=== PATIENT | female | born 1950 | race Caucasian/White ===

== ENCOUNTER → 2020-05-02 | Outpatient (CLI) | payer MEDICARE, OTHER, SELFPAY ==
[2014-06-09 10:49] VITALS: BMI 33.3
== END | disposition home or self-care (01) ==
LOC: PSN 13:49
PROVIDERS: PCP Family Medicine; Referring Provider Family Medicine; Visit Provider Family Medicine
DX: I48.91 Unspecified atrial fibrillation (principal)
CPT/HCPCS: 93225; 93226

== ENCOUNTER → 2020-05-30 | Outpatient (CLI) | payer MEDICARE, OTHER, SELFPAY ==
[2020-05-15 09:23] VITALS: BMI 36.1
--- NOTE | 2020-05-30 06:08 | ECHOD_ITS ---
Reason For Study: Afib, Aflutter Procedure This was a 2D Doppler, Color Flow transthoracic echocardiogram. Exam performed in department. Left Ventricle Normal LV size. Left ventricular systolic function is normal. The estimated ejection fraction is 65 %. Stage 1 diastolic dysfunction. No regional wall motion abnormalities noted. Right Ventricle Normal RV size. Normal systolic function. Atria Normal left atrium. Normal right atrium. Mitral Valve Normal mitral valve. Tricuspid Valve Normal tricuspid valve. Mild (1+) tricuspid valve insufficiency. Pulmonary artery systolic pressure is 36 mmHg. Aortic Valve Trisinus/trileaflet aortic valve. Pulmonic Valve Normal pulmonic valve. Great Vessels Normal aortic root. The pulmonary artery is normal size. Normal inferior vena cava. Pericardium/Pleural No pericardial effusion. MMode/2D Measurements & Calculations LVIDd: 4.7 cm IVSd: 0.95 cm Ao root diam: 3.3 cm LVIDs: 2.6 cm LVPWd: 0.94 cm RVDd: 2.1 cm FS: 44.1 % LAV(MOD-bp): 29.2 ml LVAd ap4: 18.8 cm2 SV(MOD-sp4): 27.2 ml LAV(MOD-bp) Indexed: 14.1 ml/m2 EDV(MOD-sp4): 41.3 ml LAV(MOD-sp2): 40.8 ml EDV(sp4-el): 42.4 ml LAV(MOD-sp4): 16.7 ml LVAs ap4: 10.0 cm2 ESV(MOD-sp4): 14.1 ml ESV(sp4-el): 14.6 ml EF(MOD-sp4): 65.9 % EF(sp4-el): 65.7 % SV(sp4-el): 27.9 ml LA A4 area: 8.8 cm2 LA dimension(2D): 3.2 cm RA A4 area: 7.7 cm2 Doppler Measurements & Calculations MV E max sloan: 93.9 cm/sec Lat Peak E' Sloan: 7.9 cm/sec Med Peak E' Sloan: 6.6 cm/sec MV A max sloan: 106.7 cm/sec E/E' lat: 11.8 E/E' med: 14.1 MV E/A: 0.88 Ao V2 max: 151.4 cm/sec LV V1 max: 137.7 cm/sec PA V2 max: 107.2 cm/sec Ao max P.2 mmHg LV V1 max P.6 mmHg Ao V2 mean: 101.4 cm/sec Ao mean P.5 mmHg Ao V2 VTI: 30.6 cm TR max sloan: 284.3 cm/sec TR max P.3 mmHg Interpretation Summary Normal LV size. Left ventricular systolic function is normal. The estimated ejection fraction is 65 %. Stage 1 diastolic dysfunction. Mild (1+) tricuspid valve insufficiency. Ordering Physician: Ameya Crawford Referring Physician: Yovanny Self Performed By: Neyda Herr, NANY, RVT
--- NOTE | 2020-05-30 09:04 | STRESSREP ---
Stress Test Report Pharmacologic myocardial perfusion stress test. 70-year-old lady with a history of coronary artery disease. Stress protocol: Resting EKG demonstrates normal sinus rhythm with a rate of 71 bpm normal intervals are noted resting blood pressure is 130/74 mmHg. 0.4 mg of regadenoson was infused per usual protocol followed by rapid intravenous saline flush injection continuous EKG monitoring was performed. The maximum heart rate attained was 88 bpm which was 58% of maximum predicted heart rate the maximum workload was 1 metabolic equivalent. At rest there were no ST or T wave changes noted to suggest abnormal flow reserve at peak infusion nonspecific ST-T wave changes were noted to suggest abnormal flow reserve. Myocardial perfusion protocol. 14.3 mCi of technetium 99m sestamibi was injected at rest. 0.4 mg of regadenoson was infused per usual protocol. At peak infusion 44.1 mCi of technetium 99m sestamibi was injected stress images were obtained stress and rest images were reconstructed and compared in the short axis vertical and horizontal long axis. Gated images were also obtained. Perfusion SPECT analysis: Review of the stress images demonstrate normal uptake of tracer noted in all areas of the myocardium the resting images demonstrate normal uptake of tracer noted in all areas of the myocardium. No reversibility is noted to suggest ischemia no previous infarct is noted. Gated SPECT analysis: Gated ejection fraction is 89%. Conclusion: Normal pharmacologic myocardial perfusion stress test. Preserved ejection fraction.
== END | disposition home or self-care (01) ==
LOC: CVS 06:08
PROVIDERS: PCP Family Medicine; Referring Provider Internal Medicine Cardiovascular Disease; Visit Provider Internal Medicine Cardiovascular Disease
DX: I25.10 Atherosclerotic heart disease of native coronary artery without angina pectoris (principal); R00.2 Palpitations; R07.9 Chest pain, unspecified; I48.91 Unspecified atrial fibrillation; I48.92 Unspecified atrial flutter
CPT/HCPCS: 78452; 93017; 93306; A9500; A4216; J2785

== ENCOUNTER → 2020-09-27 12:27 | Outpatient (CLI) | payer MEDICARE, OTHER, SELFPAY ==
[2020-09-23 15:19] VITALS: BMI 36.6
--- NOTE | 2020-09-27 12:31 | RAD_ITS ---
HISTORY: HYPERTENSION, V-TACHHX OF BILATERAL MASTECTOMY EXAM: XR Chest 2 Views: COMPARISON: None FINDINGS: # of images incl. paperwork: 2 Anterior cervical fixation hardware. Multiple surgical clips about the chest and abdomen. The chest may be related to breast surgery or other surgical changes. Cholecystectomy clips. Lungs are clear. Heart is not enlarged. No acute osseous pathology perceived. Pulmonary vascularity is distinct. No effusions. RAD/Chest PA and Lateral IMPRESSION: No acute cardiopulmonary disease perceived. at 0056 Reported and signed by: Dung Lam MD Electronically Signed: Dung Lam MD at 0:54 EST Tel , Service support ,
[2020-09-27 15:48] LABS: Absolute Lymphocyte Count 2.22 X10^3/uL (0.83-4.51); Absolute Neutrophil Count 4.4 X10^3/uL (2.0-7.7); Basophil# 0.04 X10^3/uL; Basophil% 0.5 % (0-1); Eosinophil# 0.25 X10^3/uL; Eosinophils% 3.4 % (0-5); Hematocrit 36.8 % (37-47); Lymphocyte # 2.22 X10^3/ul (4.0); Lymphocyte % 30.2 % (19-41); Mean Corp Hgb Conc 32.6 g/dL (32-36); Mean Corpuscular Hgb 29.6 pg (27.0-32.0); Mean Corpuscular Volume 90.6 fL (81-99); Mean Platelet Vol. 10.6 fl (6.2-12.0); Monocyte# 0.46 X10^3/uL; Monocyte% 6.3 % (0-10); NRBC Flagged by Analyzer 0 % (0-5); Neutrophil # 4.36 X10^3/uL (2.7-7.7); Neutrophil % 59.2 % (47-70); Platelet Count 302 K/mm3 (150-450); RBC Distribution Width CV 13.1 % (11.6-14.6); RBC Distribution Width SD 43.8 fl (35.1-43.9); Red Blood Count 4.06 M/mm3 (4.2-5.4); White Blood Count 7.4 K/mm3 (4.4-11.0)
[2020-09-27 15:49] LABS: International Normalized Ratio 0.9; Prothrombin Time (Protime)PT. 11.7 SECONDS (11.7-14.9)
[2020-09-27 16:07] LABS: Anion Gap 4 (5-15); BUN 14 mg/dL (7-18); BUN/Creat Ratio 13.9 RATIO (10-20); Calcium,Total 8.9 mg/dL (8.5-10.1); Chloride 106 mmol/L (98-107); Creatinine, Serum 1.01 mg/dL (0.55-1.02); EST Glomerular Filtration Rate 58 mL/min (>60); Est Glom Filt Rate - Afr Amer 70 mL/min (>60); Glucose 130 mg/dL (74-106); Magnesium 2.1 mg/dL (1.6-2.6); Potassium 3.8 mmol/L (3.5-5.1); Sodium Level 141 mmol/L (136-145); Thyroid Stim Hormone (TSH) 0.49 uIU/mL (0.358-3.74)
== END ==
PROVIDERS: PCP Family Medicine; Referring Provider Physician Assistant Medical; Visit Provider Physician Assistant Medical
DX: I47.2 Ventricular tachycardia (principal); I10 Essential (primary) hypertension; E78.5 Hyperlipidemia, unspecified; R00.2 Palpitations
CPT/HCPCS: 36415; 71046; 80048; 83735; 84443; 85025; 85610

== ENCOUNTER 2020-10-07 07:04 | Day surgery (SDC) | payer MEDICARE, OTHER, SELFPAY ==
[2020-09-23 15:19] VITALS: BMI 36.6
[2020-10-04 08:51] VITALS: BMI 36.6
--- NOTE | 2020-10-07 06:00 | HP_ITS ---
HPI HPI History of Present Illness Surgical H&P: Yes Details: This is a 70-year-old female that presents here today to further discuss her 30-day event monitor. She recently established with us earlier this year for hypertension, hyperlipidemia and postoperative atrial fibrillation. She did undergo a stress test which was negative for ischemia. Echocardiogram demonstrated a normal ejection fraction. Patient called our office last month with concerns over increase in palpitations. She did undergo a 30-day event monitor. 30-day event monitor did demonstrate 2 short episodes of nonsustained ventricular tachycardia. Pt still notes palpitations. She was having difficultly with the 30 day monitor with her skin. She does not have any chest pain. She does however have chest tightness- this can occur a few times a day and others not at all. She does feel SOB when she feels her heart is beating harder. When these occur she needs to stop and rest. She does not have any worsening SOB. She does get SOB walking up inclines. She does not have any lightheadedness/dizziness. She does not have any edema. Intake Vital Signs 09/23/20 Height 5 ft 5 in 09/23/20 Weight: 220 lb 09/23/20 BP 104/54 L 09/23/20 Blood Pressure Location Lt brachial 09/23/20 Position Sitting 09/23/20 Respiration 16 09/23/20 Pulse 72 09/23/20 Pulse Source Auscultation Intake Visit Reasons: VT (okay per MMM) Adult And Pediatric Neurologist Required: No Accompanied by: None Is patient in pain?: No Allergies Penicillins Allergy (Verified 09/23/20 15:24) Rash pregabalin [From Lyrica] Allergy (Verified 09/23/20 15:24) swelling morphine Adverse Reaction (Verified 09/23/20 15:24) Vomiting NSAIDS (Non-Steroidal Anti-Inflamma Adverse Reaction (Verified 09/23/20 15:24) abdominal pain/nausea/GERD Medications albuterol sulfate 90 mcg/actuation aerosol inhaler 2 puff INHALATION Q6H PRN 05/14/20 [History Confirmed 09/23/20] citalopram 40 mg tablet 60 mg PO DAILY tab 05/14/20 [History Confirmed 09/23/20] hydrochlorothiazide 12.5 mg tablet 12.5 mg PO DAILY 05/14/20 [History Confirmed 09/23/20] lisinopril 20 mg tablet 20 mg PO DAILY tab 05/14/20 [History Confirmed 09/23/20] lorazepam 1 mg tablet 1 mg PO QHS tab 05/14/20 [History Confirmed 09/23/20] trazodone 100 mg tablet 100 mg PO DAILY tab 05/14/20 [History Confirmed 09/23/20] metoprolol succinate 50 mg tablet,extended release 24 hr 50 mg PO DAILY #90 tab 05/15/20 [Rx Confirmed 09/23/20] aspirin 81 mg tablet,delayed release 81 mg PO DAILY 09/23/20 [History Confirmed 09/23/20] clopidogrel 75 mg tablet 75 mg PO DAILY #30 tab 09/23/20 [Rx Confirmed 09/23/20] hydrocodone 5 mg-acetaminophen 325 mg tablet 1 tab PO TID PRN tab 09/23/20 [History Confirmed 09/23/20] methocarbamol 500 mg tablet 500 mg PO Q8H PRN tab 09/23/20 [History Confirmed 09/23/20] omeprazole 20 mg capsule,delayed release 40 mg PO DAILY cap 09/23/20 [History Confirmed 09/23/20] rosuvastatin 10 mg tablet 10 mg PO QHS tab 09/23/20 [History Confirmed 09/23/20] Ejection fraction %: 65 to 70 PFSH Medical History Postoperative atrial fibrillation (Acute 04/29/20) Essential (primary) hypertension (Chronic) Hyperlipidemia (Chronic) Anxiety and depression (Chronic) Asthma (Chronic) Cervicalgia (Chronic) Diverticulosis (Chronic) GERD (gastroesophageal reflux disease) (Chronic) Glaucoma (Chronic) Hiatal hernia (Chronic) OAB (overactive bladder) (Chronic) Obesity (BMI 30-39.9) (Chronic) Surgical History Cervical vertebral fusion (Resolved) Dupuytren's contracture of right hand (Resolved 04/29/20) History of bilateral mastectomy (Resolved) History of hand surgery (Resolved) History of hip surgery (Resolved) History of open reduction and internal fixation (ORIF) procedure (Resolved) History of repair of rotator cuff (Resolved 02/2020) History of surgical procedure on eye proper using laser (Resolved) History of total knee arthroplasty (Resolved) Family History Father Heart disease Mother Heart disease Atrial fib Social History (Updated 09/23/20 @ 16:40 by Peyton Garrison PA, PA) Smoking Status: Never smoker ROS Const Const: Positive for fatigue; negative for weakness, headache(s), frequent falls, difficulty sleeping or excessive sweating Eyes Eyes: Negative for loss of peripheral vision, transient loss of vision, blurry vision, double vision or tunnel vision ENT ENT: Positive for dizziness (Occasionally); negative for headache(s), Nosebleed/epistaxis or balance problems Cardio Chest Pain: Yes Frequency: more than once a day Character: tightness Onset: other (randomly) Location: mid sternal Duration: minutes (less than a minute) Palpitations: Yes feels like its: fast, other (fluttering) Edema: None Muscle aches with walking: None Resp Respiratory: Positive for SOB with activity (with incline); negative for SOB at rest, SOB orthopnea\SOB lying down, Cough or paroxysmal nocturnal dyspnea GI GI: Negative nausea, vomiting, heartburn or black,tarry stools : Negative for hematuria Musc Musc: Negative for muscle aches/ myalgia, muscle weakness, joint pain or balance problems Skin Skin: Negative non-healing lesions, rash or unusual bruising Neuro Neuro: Positive for dizziness (Occasionally); negative for lightheadedness, near syncope, syncope, frequent falls, headache(s), weakness, blurry vision, double vision or lack of coordination Antonino Hematologic/Lymphatic: Negative for easy bleeding or easy bruising Endo Endo: Positive for fatigue; negative for excessive sweating or increased thirst/drinking Psych Psych: Negative for anxiety or depression Allergy Allergy/Immunology: Negative for hives, Negative for rash Cardiology Exam Const Appearance: cooperative, no acute distress and well developed Orientation: alert, awake and oriented x3 Head Head: normocephalic and atraumatic Mouth: moist mucous membranes Eyes General: appearance normal, both eyes and all related structures Conjunctivae: conjunctivae normal Pupils: PERRL EOM: EOM intact bilaterally Neck Neck: normal visual inspection, no lymphadenopathy and no JVD Carotids: Negative bruit Neck Mass: Negative Neck mass Chest Chest inspection: normal inspection of the chest and symmetric chest movement Auscultation: Bilateral: Clear to Auscultation Cardio Palpation: normal PMI Rate: regular rate Rhythm: regular rhythm Heart sounds: S1 normal and S2 normal; negative rub, gallop or murmur GI GI: normal to inspection, soft, no hepatosplenomegaly and bowel sounds present; negative tender Neuro General: alert, awake, oriented x3, CN's II-XI intact bilaterally and moves all extremities Extremities Pulses: Normal: Right Posterior Tibial Pulse, Left Posterior Tibial Pulse, Right Radial Pulse, Left Radial Pulse Lower Extremity Edema: None: Bilateral Psych Psychological: normal affect Assessment & Plan 1. NSVT (nonsustained ventricular tachycardia) I47.2 Plan Pt was not symptomatic with NSVT that was noted. With her recent normal stress test and newly noted NSVT would like to pursue a heart cath. Pt is agreeable with this. Will also obtain labs. Orders Orders: 12 Lead EKG performed by [facility] Today Basic Metabolic Profile (BMP) Today Prothrombin Time w/INR Today CBC W/Diff, Automated Today Chest PA and Lateral Today Magnesium Today Thyroid Stim Hormone (TSH) Today 2. Essential hypertension I10 Plan Blood pressure is well controlled on current medications, we do not recommend any changes at this time. Orders Orders: 12 Lead EKG performed by [facility] Today Basic Metabolic Profile (BMP) Today Prothrombin Time w/INR Today CBC W/Diff, Automated Today Chest PA and Lateral Today Magnesium Today Thyroid Stim Hormone (TSH) Today 3. Hyperlipidemia E78.5 Plan Pt will continue with moderate intensity statin Orders Orders: 12 Lead EKG performed by [facility] Today Basic Metabolic Profile (BMP) Today Prothrombin Time w/INR Today CBC W/Diff, Automated Today Chest PA and Lateral Today Magnesium Today Thyroid Stim Hormone (TSH) Today 4. Postoperative atrial fibrillation I97.89; I48.91 episode of afib during hand surgery Plan Pt has not had any recurrance, for now will continue with Metoprolol. Plan Detail Other Orders Orders: Thyroid Stim Hormone (TSH) Today R00.2 Other Medications New: clopidogrel (Plavix) 75 mg PO DAILY 30 tabs 3RF aspirin (Adult Aspirin Regimen) 81 mg PO DAILY Follow Up 09/23/20 (keep as is) Coding Level of Care Code Off vis,est,level 4 Diagnoses NSVT (nonsustained ventricular tachycardia) I47.2 Essential hypertension I10 Hyperlipidemia E78.5 Postoperative atrial fibrillation I97.89; I48.91 Coding Level of Care Code Off vis,est,level 4 Diagnoses NSVT (nonsustained ventricular tachycardia) I47.2 Essential hypertension I10 Hyperlipidemia E78.5 Postoperative atrial fibrillation I97.89; I48.91 Supplemental Info Supplemental Information Echocardiogram 05/2020: Normal LV size. Left ventricular systolic function is normal. The estimated ejection fraction is 65 %. Stage 1 diastolic dysfunction. Mild (1+) tricuspid valve insufficiency. Stress test 05/2020: Normal pharmacologic myocardial perfusion stress test. Preserved ejection fraction Diagnostics Electrocardiogram 09/23/20 Echocardiogram 05/30/20 Stress Test Nuclear Medicine 05/30/20 Stress Test 05/30/20 COVID (Procedure Consent) Procedure Criteria Procedure Criteria: Yes Elective The surgeon/proceduralist and patient have discussed in detail the risk of exposure to and/or potential harm posed by the COVID-19 virus with having a surgery/procedure at this time versus the risk of? delaying the surgery/procedure. It is not possible to know either the risk of delaying the surgery or procedure or chance of getting an infection with perfect accuracy, but a joint decision was made between the patient and the surgeon/proceduralist ?to proceed at this time with the scheduled surgery/procedure as indicated on the consent form.
--- NOTE | 2020-10-07 08:49 | CL.D_ITS ---
Patient Name: LINDSAY JACKSON Study Date: 10/07/2020 Performing: Ameya Crawford MD Ht: 64.96 inches 165 cm : 1950 Wt: 220.46 lbs 100 kg Age: 70 Gender: female BSA: 2.06 PROCEDURE(S) PERFORMED IX78-WRL/COR/LV CLINICAL PROFILE AND INDICATIONS Indications: Cardiac Arrythmia Heart Failure: None Stress/Imaging Stress/Image Study Performed: No CAD Presentations: No Sxs, no angina. CONCLUSIONS Normal coronary arteries Normal LV size, wall motion,and systolic function RECOMMENDATIONS Medical therapy DESCRIPTION OF PROCEDURE The patient arrived to the procedure lab. The risks and benefits of the procedure as well as a full d escription of our services here and current unavailability of surgical backup were fully explained to the patient and/or their significant other prior to the catheterization. The Timeout was completed, verifying the correct patient and procedure. The patient's procedural site was prepped and draped in the usual fashion. Local anesthetic was given subcutaneously to right radial region with Lidocaine 2% . Using a modified Seldinger technique, arterial access was obtained via the right radial artery, a 6 Fr sheath was inserted. Right Coronary Artery selective angiography was performed in multiple views using a 5 Fr. 4.0 Sumter catheter. Left Coronary Artery selective angiography was performed in multipl e views using a 5 Fr. 4.0 [place] catheter. Left Ventriculography was performed in [place] projection using a 5 Fr. Pigtail catheter. LV to AO pullback pressures were then recorded.The arterial sheath was pulled and a TR Band was applied for hemostasis CORONARY ANGIOGRAPHY DOMINANCE: Right Dominant LEFT HEART ASSESSMENT Left Ventricular Ejection Fraction: by LV Gram 60 % Normal LV wall motion Normal Left Ventricular systolic function Normal Left Ventricular systolic function LEFT MAIN: Angiographically normal LEFT ANTERIOR DESCENDING ARTERY: Angiographically normal CIRCUMFLEX ARTERY: Angiographically normal RIGHT CORONARY ARTERY: Angiographically normal COMPLICATIONS No Complications PROCEDURE MEDICATIONS Fentanyl 50 mcg IV Versed 1 mg IV Versed 1 mg IV Oxygen: 2 L/min via nasal cannula Heparin diluted in 23cc Heparinized saline. Patient given 10cc IA of this solution. 10/07/2020 08:09: 06 Verapamil 2.5mg, Ntg 100mcgs, 2000 units of Heparin diluted in 23cc Heparinized saline. Patient give n 10cc IA of this solution. 10/07/2020 08:09:06 SUMMARY OF HEMODYNAMIC DATA Time AIR REST ECG 07:31:32 AO 118/62 (87) SA 08:13:17 LV 128/6, 19 08:26:06 LV 129/6, 18 08:26:12 LV 122/8, 19 08:27:25 LV 125/10, 20 08:27:31 LVp 129/10, 24 08:27:35 AOp 133/62 (92) 08:27:40 Signed By Ameay Crawford MD On 10/07/2020 08:48:42 Ameya Crawford MD
== END 2020-10-07 10:25 | disposition home or self-care (01) ==
LOC: CLSP 07:05
PROVIDERS: PCP Family Medicine; Referring Provider Internal Medicine Cardiovascular Disease; Visit Provider Internal Medicine Cardiovascular Disease
DX: I47.2 Ventricular tachycardia (principal); I10 Essential (primary) hypertension; E78.5 Hyperlipidemia, unspecified; I48.91 Unspecified atrial fibrillation; I97.89 Other postprocedural complications and disorders of the circulatory system, not elsewhere classified; J45.909 Unspecified asthma, uncomplicated; K21.9 Gastro-esophageal reflux disease without esophagitis; E66.9 Obesity, unspecified; Z79.899 Other long term (current) drug therapy; Z79.51 Long term (current) use of inhaled steroids
CPT/HCPCS: 93458; 99152; 99153; J7040; Q9967; C1769; C1894

== ENCOUNTER → 2021-01-08 12:48 | Outpatient (CLI) | payer MEDICARE, SELFPAY ==
[2021-01-02 13:04] VITALS: BMI 36.4
--- NOTE | 2021-01-08 12:50 | US_ITS ---
INDICATION: NECK SWELLING EXAMINATION: US Thyroid (eg thyroid, parathyroid, parotid) TECHNIQUE: Peguero scale and color doppler imaging was performed of the thyroid gland. COMPARISON: None. FINDINGS: RIGHT THYROID LOBE: 5.3 x 1.8 x 2.5 cm. Homogeneous echotexture with normal vascularity. [Multiple subcentimeter nodules are seen, largest of which measures 5 mm and is well-circumscribed, hypoechoic, wider than tall and solid. LEFT THYROID LOBE: 5.7 x 2.2 x 2.3 cm. Homogeneous echotexture with normal vascularity. [There is a 7 mm hypoechoic well-circumscribed, wider than tall solid nodule in the midpole. In the lower pole, there is a 3 x 2.4 x 2.4 cm solid and cystic mass with indistinct margins, isoechoic, wider than tall. ISTHMUS: 0.3 cm. No thyroid nodules are present. US/Thyroid IMPRESSION: Multinodular goiter: -A 3 cm solid and cystic nodule in the left lower pole is TI-RADS 3. Recommend FNA. -The other two nodules measured are also TI-RADS 3 but are small and therefore no FNA recommended. Electronically Signed: Baldev Patel MD at 0:09 EDT Tel , Service support ,
== END ==
PROVIDERS: PCP Family Medicine; Referring Provider Family Medicine; Visit Provider Family Medicine
DX: R22.1 Localized swelling, mass and lump, neck (principal)
CPT/HCPCS: 76536

== ENCOUNTER → 2021-01-22 | Outpatient (CLI) | payer MEDICARE, SELFPAY ==
--- NOTE | 2021-01-22 | ASPS_PTH ---
PATIENT: [facility]INDSAY JACKSON [id number] AGE/SX: 70/F ROOM: RE01/22/[address]: Dr. Mikael Collins MD : 1950 BED: DIS: 01/22/2021 SPEC #: [id number] RECD: 01/22/21 15:10 STATUS: MIGUEL ANGEL REQ #: [id number] ANDREA: 01/22/21 00:[address]: Mikael Collins DEPT: CYTOLOGY RECD BY: Humza Arellano ENTERED: 01/23/21 08:37 SP TYPE: ASPIRATION OTHR DR: Dr. Yovanny Self MD Tissues: Thyroid gland, NOS Procedures: Special Stain Group II Cytology Other HEADER OPERATION: Left thyroid fine needle aspiration PRE-OP DIAGNOSIS: Left thyroid nodule TISSUE SUBMITTED: Left thyroid slides x10 DIAGNOSIS CYTOLOGY Fine needle aspiration, left thyroid nodule (smears): Adequate for evaluation. Negative, consistent with benign colloid/follicular nodule. Chronic inflammation. AM:beryl 01/24/2021 CYTOLOGY STUDY Slides are reviewed. CYTOLOGY GROSS Received are 10 smears labeled with the patient's name and designated per the requisition as left thyroid. Submitted for staining. / beryl 01/23/2021 TC:3 CPT: 01006
[2021-01-22 12:57] VITALS: BMI 36.4
== END | disposition home or self-care (01) ==
LOC: LABSPEC 15:22
PROVIDERS: PCP Family Medicine; Visit Provider Surgery
DX: E04.1 Nontoxic single thyroid nodule (principal)
CPT/HCPCS: 88161; 88313

== ENCOUNTER → 2021-01-30 12:33 | Outpatient (CLI) | payer MEDICARE, SELFPAY ==
[2021-01-22 12:57] VITALS: BMI 36.4
--- NOTE | 2021-01-30 12:54 | ST.MBS ---
Modified Barium Swallow - Patient Information Study Date: 01/30/21 Study Time: 13:00 Direct Billable Minutes: 120 Total Minutes procedure & reportin Diagnosis: Dysphagia Referring Physician: Dr. Collins Reason for Referral: The patient was referred by Dr. Collins d/t reported difficulty swallowing over the past couple of months. Patient has noted that there is a slight catch when she tries to swallow, and she points more toward the base of her left neck. Patient underwent a thyroid ultrasound at [facility] on 01/08/2021 which suggested that in the lower pole on the left there was a 3 x 2.4 x 2.4 cm solid cystic mass with indistinct margins. An ultrasound-guided fine needle aspiration left thyroid nodule was completed on 01/22/2021 and then the patient was referred for an outpatient Modified Barium Swallow Study w/ instruction per the referring physician to identify where the thyroid could be impacting her swallowing and be a component to her concerns. Medical History: Roselyn Delgadillo is a 70 y/o female w/ a past medical history significant for Anxiety and depression, Asthma, Cervicalgia, Diverticulosis, Dysphagia, Essential (primary) hypertension, GERD (gastroesophageal reflux disease), Glaucoma, Hiatal hernia, Hyperlipidemia, OAB (overactive bladder), Obesity (BMI 30-39.9), Postoperative atrial fibrillation (04/29/20), and a surgical history of Cervical vertebral fusion (+20 years ago), Dupuytren's contracture of right hand (04/29/20), History of bilateral mastectomy, History of hand surgery, History of hip surgery, History of left heart catheterization (10/07/20), History of open reduction and internal fixation (ORIF) procedure, History of repair of rotator cuff (02/2020), History of surgical procedure on eye proper using laser, and History of total knee arthroplasty. Current Diet Ordered: regular textures/thin liquids Mental Status: WNL Respiratory Status: Oxygenating on Room Air - Penetration-Aspiration Scale Penetration-Aspiration Scale: OBJECTIVE ASSESSMENT OF SWALLOW FUNCTION (QUANTITATIVE ? PER TRIAL): PENETRATION / ASPIRATION SCALE (ROWAN): 1 = does not enter airway 2 = enters airway/above vocal folds/ejected 3 = enters airway/above vocal folds/not ejected 4 = enters airway/contacts vocal folds/ejected 5 = enters airway/contacts vocal folds/not ejected 6 = enters airway/below vocal folds/ejected 7 = enters airway/below vocal folds/not ejected despite effort 8 = enters airway/below vocal folds/no effort - Penetration-Aspiration Scale Score Thin Liquid via teaspoon Result: 1= does not enter airway Thin Liquid via teaspoon Trial 2 Result: 1= does not enter airway Thin Liquid via small single sip from cup Result: 1= does not enter airway Thin Liquid via sequential sips from cup Result: 1= does not enter airway Thin Liquid via single sip from straw Result: 1= does not enter airway Pudding Result: 1= does not enter airway Cookie Result: 1= does not enter airway Pudding - esophageal clearance screen Result: 1= does not enter airway - Oral Phase Labial Seal: No Labial Escape Tongue Control During Bolus Hold: Cohesive bolus between tongue to palatal seal Bolus Preparation/Mastication: Timely and efficient chewing and mashing Bolus Transport/Lingual Motion: Brisk tongue motion Oral Residue: Trace residue lining oral structures - Pharyngeal Phase Initiation of Pharyngeal Swallow: Bolus head at posterior laryngeal surgace of epiglottis Soft Palate Elevation: No bolus between soft palate and pharyngeal wall Laryngeal Elevation: Comp. Superior move thyroid cart w/comp. apprx arytenoid cart-epig pet Anterior Hyoid Excursion: Complete anterior movement Epiglottic Movement: Complete inversion Laryngeal Vestibule Closure at Height of Swallow: Complete; no air/contrast in laryngeal vestibule Pharyngeal Stripping Wave: Present - diminished Pharyngoesophageal Segment Opening: Parital distension and partial duration; parital obstruction of flow Tongue Base Retraction: Trace column of contrast between tongue base & post. pharyngeal wall Pharyngeal Residue: Trace residue within or on pharyngeal structures - Esophageal Phase Esophageal Clearance: Esophageal retention w/ retrograde flow below pharyngoesophageal seg. - Diagnosis/Impression Diagnosis: Functional Oropharyngeal Swallow; Suspected Esophageal Phase Dysphagia Impression: Swallow function is marked by: adequate oral to pharyngeal bolus transportation mild delay in swallow onset w/ large volume/sequential swallows w/ liquid reaching the posterior laryngeal surface of the epiglottis prior to swallow onset 1x; otherwise swallow onset initiated when bolus reached the vallecular pit trace vallecular residue retention post deglutition; incidental finding and likely not contributing to the patietn's reported symptoms adequate bolus clearance through the pharyngoesophageal segment despite reduction in distention w/ evidence of yariel cervical protrusion and cervical fusion hardware at the C-5 level complete laryngeal vestibule closure w/ sufficient duration and pressure for airway protection during deglutition under fluoroscopy screening of esophageal bolus clearance revealed esophageal retention w/ retrograde bolus flow below the pharyngoesophageal segment Despite oropharyngeal swallow function that appears to be grossly within normal limits under fluoroscopy, this patient reports that she coughs and chokes on solids and liquids 3-4x/week, which is considerably higher that what would be considered normal for her age and swallow function demonstrated. She additionally reports increased likelihood of choking when eating while in a semi-reclined position. Highly suspect GERD to be a contributing factor w/ potential for retrograde bolus flow through PES to be resulting in aspiration. Education provided re: GERD precautions during PO intake. - Recommendations Diet: Regular Textures, Thin Liquids Compensatory Strategies: Small Bites, Small Sips, Slow Rate - allow 8-12 seconds between bites and sips , Sitting upright - avoid PO intake unless seated w/ hip flexion at 90 degrees; remain upright at 90 degrees for 60 minutes after any/all PO intake (GERD precautions) Recommend Repeat Modified Barium Swallow: No Need for Skilled Speech Therapy Services: No Comment: Results and recommendations were provided immediately following study completion. Images were reviewed w/ the patient to improve comprehension of findings and increase likelihood of compliance w/ the recommended compensatory strategies. The patient verbalized and demonstrated comprehension of the education provided. Recommended Referrals: GI Consult Education Completed: 1. Described result of evaluation., 2. Pt understands evaluation & agrees with goals and treatment plan. - Status Active ST Patient: Active - Contact Information [facility] Speech Therapy:: Herminia Kruse M.A., [facility] [facility] [address] [place] [address] [email or web address]
== END ==
PROVIDERS: PCP Family Medicine; Referring Provider Surgery; Visit Provider Surgery
DX: R13.10 Dysphagia, unspecified (principal)
CPT/HCPCS: 74230; 92611

== ENCOUNTER 2021-02-10 08:01 | Day surgery (SDC) | payer MEDICARE, OTHER, SELFPAY ==
[2021-01-31 15:36] VITALS: BMI 36.2
[2021-02-10 08:15] VITALS: BP 153/86; PULSE 77; RESP 16; TEMP 36.2; O2SAT 99
[2021-02-10] MEDS: Lidocaine Jelly 2% 20 ML Syringe (URO-JET) 20 APPLIC (08:18)
== END 2021-02-10 08:31 ==
PROVIDERS: Surgery; PCP Family Medicine; Referring Provider Family Medicine; Visit Provider Surgery
PROC: F00ZJWZ Instrumental Swallowing and Oral Function Assessment using Swallowing Equipment (ICD-10-PCS; CPT 43235; principal; 2021-02-10 07:55)
DX: R13.10 Dysphagia, unspecified (principal)
CPT/HCPCS: 91010

== ENCOUNTER 2021-03-11 05:18 | Day surgery (SDC) | payer MEDICARE, OTHER, SELFPAY ==
[2021-01-31 15:36] VITALS: BMI 36.2
[2021-03-11] VITALS (7 sets, daily range): BP systolic 98–155; BP diastolic 64–84; PULSE 67–73; RESP 16; TEMP 36.2–36.7; O2SAT 92–100; BMI 35.9
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
--- NOTE | 2021-03-11 06:30 | IMM_PTH ---
PATIENT: LINDSAY JACKSON LOC: EN U#:[id number] AGE/SX: 70/F ROOM: RE03/11/[address]: Dr. Mikael Collins MD : 1950 BED: DIS: 03/11/2021 SPEC #: [id number] RECD: 03/11/21 12:19 STATUS: MIGUEL ANGEL RELynn #: [id number] ANDREA: 03/11/21 06:[address]: Mikael Collins DEPT: IMMUNOHISTOCHEMISTRY RECD BY: Gerda Vivas ENTERED: 03/11/21 12:21 SP TYPE: IMMUNO OTHR DR: Dr. Yovanny Self MD Tissues: B - Stomach, NOS Procedures: H Pylori (initial) PHYSICIAN & INSTITUTION [place] [id number] SPECIMEN INFORMATION: Tissue Source: B ? Antrum biopsy Clinical Info: GERD, dysphagia, hiatal hernia Specimen Number: [id number] CPT code: 15785 METHODOLOGY: Deparaffinized sections of prefer/formalin-fixed tissue or PAP/DQ stained slides are incubated with monoclonal/polyclonal antibodies/oligonucleotide probes. Localization is made via biotin free immunoperoxidase method. Appropriate controls are performed and reacted as expected. Results on target cell population are indicated in the following table: RESULTS: ANTIBODY / CLONE RESULT Block B H Pylori (polyclonal) negative These tests were developed and their performance characteristics determined by [facility]. They may not have been cleared or approved by the U.S. Food and Drug Administration. The FDA has determined that such clearance or approval is not necessary. INTERPRETATION: B. Antrum biopsy: Negative for Helicobacter pylori organisms. AM:beryl 03/12/2021
--- NOTE | 2021-03-11 06:30 | EGD_PTH ---
PATIENT: LINDSAY JACKSON LOC: EN U#:[id number] AGE/SX: 70/F ROOM: RE03/11/[address]: Dr. Mikael Collins MD : 1950 BED: DIS: 03/11/2021 SPEC #: [id number] RECD: 03/11/21 10:01 STATUS: MIGUEL ANGEL ALLAN #: [id number] ANDREA: 03/11/21 06:[address]: Mikael Collins DEPT: SURGICAL PATHOLOGY RECD BY: Heather Galan ENTERED: 03/11/21 10:52 SP TYPE: EGD BIOPSY OT DR: Dr. Yvoanny Self MD Tissues: A - Duodenum, NOS B - Gastric mucous membrane C - Gastric mucous membrane D - Esophagus, NOS E - Esophagus, NOS Procedures: Surgery Specimen Level IV HEADER OPERATION: EGD (MOD) PRE-OP DIAGNOSIS: GERD, dysphagia, hiatal hernia TISSUE SUBMITTED: A - Duodenum biopsy, B - Antrum biopsy for histo and H. pylori, C - Greater curvature polyp biopsy, D - Distal esophagus biopsy, E - Mid esophagus biopsy MICROSCOPIC DIAGNOSIS A. Duodenum, biopsy: Focal gastric metaplasia. B. Gastric antrum, biopsy: Mild chronic gastritis. See comment. C. Polyp, greater curvature of stomach, biopsy: Fundic gland polyp. D. Distal esophagus, biopsy: Fragments of benign squamous mucosa. No evidence of inflammation. E. Mid esophagus, biopsy: Fragment of benign squamous mucosa. No evidence of inflammation. AM:beryl 03/12/2021 COMMENT B. The results of immunohistochemistry for Helicobacter pylori will be reported separately ([id number]). MICROSCOPIC DESCRIPTION Slides are reviewed. GROSS DESCRIPTION A - Received in fixative is one container labeled with the patient's name and designated duodenum biopsy. The specimen consists of multiple irregular fragments of light ibarra soft tissue that in aggregate measure 1 x 0.3 x 0.1 cm. The specimen is totally submitted in one cassette. B - Received in fixative is one container labeled with the patient's name and designated antrum biopsy. The specimen consists of one irregular fragment of light ibarra soft tissue that measures 0.3 x 0.3 x 0.1 cm. The specimen is totally submitted in one cassette. C - Received in fixative is one container labeled with the patient's name and designated greater curvature polyp biopsy. The specimen consists of one irregular fragment of light ibarra soft tissue that measures 0.5 x 0.3 x 0.1 cm. The specimen is totally submitted in one cassette. D - Received in fixative is one container labeled with the patient's name and designated distal esophagus biopsy. The specimen consists of two irregular fragments of light ibarra soft tissue that in aggregate measure 0.6 x 0.3 x 0.1 cm. The specimen is totally submitted in one cassette. E - Received in fixative is one container labeled with the patient's name and designated mid esophagus biopsy. The specimen consists of one irregular fragment of light ibarra soft tissue that measures 0.3 x 0.3 x 0.1 cm. The specimen is totally submitted in one cassette. / SJ:rg 03/11/21 TC:3 CPT: 56171 x5
--- NOTE | 2021-03-11 06:49 | OP.CCLET_ITS ---
03/11/2021 Yovanny Self Re : Upper GI endoscopy procedure for Roselyn Delgadillo Dear Aramis This procedure was performed on Thursday, March 11, 2021. My impressions and recommendations are as follows: Impressions : - Small hiatal hernia. - Z-line regular, 39 cm from the incisors. Biopsied. - Normal mid esophagus. Biopsied. - Multiple gastric polyps. Biopsied. - Erythematous mucosa in the antrum. Biopsied. - Normal examined duodenum. Biopsied. Recommendations : - Discharge patient to home. - Resume previous diet. - Continue present medications. - Telephone my office for pathology results in 1 week. My findings are described in the full procedure note, which is enclosed. If I can be of further assistance, please feel free to contact me at Doctor phone number(s): Work: . Sincerely, Mikael Collins MD 03/11/2021 6:48:25 AM This report has been signed electronically.
--- NOTE | 2021-03-11 06:49 | OP.EGD_ITS ---
Patient Name: Roselyn Delgadillo Procedure Date: 03/11/2021 6:08 AM Date of : 1950 Age: 70 Procedure: Upper GI endoscopy Indications: Suspected esophageal reflux Providers: Mikael Collins MD Medicines: Midazolam 4 mg IV, Meperidine 100 mg IV Complications: No immediate complications. Procedure: Pre-Anesthesia Assessment: - Prior to the procedure, a History and Physical was performed, and patient medications and allergies were reviewed. The patient's tolerance of previous anesthesia was also reviewed. The risks and benefits of the procedure and the sedation options and risks were discussed with the patient. All questions were answered, and informed consent was obtained. Prior Anticoagulants: The patient has taken no previous anticoagulant or antiplatelet agents. ASA Grade Assessment: II - A patient with mild systemic disease. After reviewing the risks and benefits, the patient was deemed in satisfactory condition to undergo the procedure. After obtaining informed consent, the endoscope was passed under direct vision. Throughout the procedure, the patient's blood pressure, pulse, and oxygen saturations were monitored continuously. The gastroscope was introduced through the mouth, and advanced to the second part of duodenum. The upper GI endoscopy was accomplished without difficulty. The patient tolerated the procedure well. Moderate Sedation: Moderate (conscious) sedation was personally administered by the endoscopist. The following parameters were monitored: oxygen saturation, heart rate, blood pressure, and response to care. Total physician intraservice time was 13 minutes. Scope In: 6:35:52 AM Scope Out: 6:42:33 AM Total Procedure Duration Time 0 hours 6 minutes 41 seconds Findings: A small hiatal hernia was present. The Z-line was regular and was found 39 cm from the incisors. Biopsies were taken with a cold forceps for histology. The mid esophagus was normal. Biopsies were taken with a cold forceps for histology. Multiple sessile polyps with no bleeding and no stigmata of recent bleeding were found on the greater curvature of the stomach. Biopsies were taken with a cold forceps for histology. Diffuse mildly erythematous mucosa without bleeding was found in the gastric antrum. Biopsies were taken with a cold forceps for histology. The examined duodenum was normal. Biopsies were taken with a cold forceps for histology. Impression: - Small hiatal hernia. - Z-line regular, 39 cm from the incisors. Biopsied. - Normal mid esophagus. Biopsied. - Multiple gastric polyps. Biopsied. - Erythematous mucosa in the antrum. Biopsied. - Normal examined duodenum. Biopsied. Recommendation: - Discharge patient to home. - Resume previous diet. - Continue present medications. - Telephone my office for pathology results in 1 week. Procedure Code(s): --- Professional --- 35136, Esophagogastroduodenoscopy, flexible, transoral; with biopsy, single or multiple 50369, 59, Moderate sedation services provided by the same physician or other qualified health care aid performing the diagnostic or therapeutic service that the sedation supports, requiring the presence of an independent trained observer to assist in the monitoring of the patient's level of consciousness and physiological status; initial 15 minutes of intraservice time, patient age 5 years or older Diagnosis Code(s): --- Professional --- K44.9, Diaphragmatic hernia without obstruction or gangrene K31.7, Polyp of stomach and duodenum K31.89, Other diseases of stomach and duodenum CPT copyright 2017 [employer]. All rights reserved. The codes documented in this report are preliminary and upon rn testing review may be revised to meet current compliance requirements. Mikael Collins MD 03/11/2021 6:48:25 AM This report has been signed electronically. Number of Addenda: 0 Note Initiated On: 03/11/2021 6:08 AM
== END 2021-03-11 07:35 ==
LOC: EN 05:19 → AC 05:20
PROVIDERS: PCP Family Medicine; Referring Provider Family Medicine; Visit Provider Surgery
PROC: (CPT 43239; principal; 2021-03-11 06:25)
DX: K31.7 Polyp of stomach and duodenum (principal); K22.70 Barrett's esophagus without dysplasia; K44.9 Diaphragmatic hernia without obstruction or gangrene; K29.50 Unspecified chronic gastritis without bleeding; R13.11 Dysphagia, oral phase; I10 Essential (primary) hypertension; K21.9 Gastro-esophageal reflux disease without esophagitis; J45.909 Unspecified asthma, uncomplicated; H40.9 Unspecified glaucoma; F32.9 Major depressive disorder, single episode, unspecified; F41.9 Anxiety disorder, unspecified; E78.5 Hyperlipidemia, unspecified; N32.81 Overactive bladder; E04.2 Nontoxic multinodular goiter; E66.9 Obesity, unspecified; M19.90 Unspecified osteoarthritis, unspecified site; Z98.1 Arthrodesis status; Z85.3 Personal history of malignant neoplasm of breast; Z78.0 Asymptomatic menopausal state; Z79.899 Other long term (current) drug therapy
CPT/HCPCS: 43239; 88305; 88342; 99152; 99153; J7120

== ENCOUNTER → 2021-07-14 09:42 | Outpatient (CLI) | payer MEDICARE, OTHER, SELFPAY ==
--- NOTE | 2021-07-14 09:45 | US_ITS ---
STUDY: THYROID ULTRASOUND REASON FOR EXAM: Female, 71 years old. SWELLING TECHNIQUE: Ultrasound evaluation of the thyroid was performed with real-time and static mccain-scale imaging. COMPARISON: Comparison is made with prior sonogram dated 01/08/2021. FINDINGS: RIGHT LOBE: The right lobe of the thyroid gland is slightly enlarged and measures 5.5 cm x 2 cm x 2.2 cm. There is a homogeneous echotexture. Multiple small hypoechoic nodules are seen within the right lobe. The largest measures 5 mm x 4 mm x 3 mm. This is in the lower pole. LEFT LOBE: The left lobe of the thyroid gland measures 4.9 cm x 2.1 cm x 2.5 cm. There is a homogeneous echotexture. There is a dominant 2.5 cm x 2.6 cm x 2.3 cm solid heterogeneous hypoechoic nodule in the lower pole. Intranodular and perinodular vascularity is seen. This is unchanged. ISTHMUS: The isthmus measures 4 mm. The regional lymph nodes are normal. US/Thyroid IMPRESSION: Dominant hypoechoic solid nodule in the lower pole of the left lobe of the thyroid. Biopsy is recommended. Electronically Signed: Randy Galindo MD at 12:27 EDT , Service support ,
== END ==
PROVIDERS: PCP Family Medicine; Referring Provider Family Medicine; Visit Provider Family Medicine
DX: R22.1 Localized swelling, mass and lump, neck (principal)
CPT/HCPCS: 76536

== ENCOUNTER 2021-11-03 16:02 | Emergency (ER) | payer MEDICARE, OTHER, SELFPAY ==
[2021-11-03 16:03] VITALS: BP 135/76; PULSE 62; RESP 16; TEMP 36; O2SAT 97; BMI 36.6
[2021-11-03 16:06] VITALS: BP 135/76; PULSE 62; RESP 16; TEMP 36; O2SAT 97
--- NOTE | 2021-11-03 16:56 | EDS_ITS ---
HPI History of Present Illness Chief Complaint: Syncope Informant: patient and spouse/S.O. Onset/Context/Timing Onset: Today, Hours (Occurred at approximately 1400) and - (Reports near syncope for the past several months) Context: Sudden Onset Timing: Intermittent Quality: Lightheaded Location: Neighbors home Current Severity: Mild Maximum Severity: Severe Worsened by: Nothing specific Relieved by: Nothing Associated Symptoms Associated Symptoms: Pallor, nausea, lightheadedness, tunnel vision Narrative Narrative: Patient is a 71-year-old woman with history of GERD, hiatal hernia, peptic ulcer disease with GI bleed in 1969 who was sent in by her produce inspector nurse practitioner after her called. She does have history of hypertension and hyperlipidemia and had postoperative atrial fibrillation (shoulder surgery). Presently patient states she does not feel well. She denies fever, chills night sweats. She denies double vision, blurred vision or loss of vision. She denies ringing or ears or decreased hearing. She denies trouble with speech or swallowing. She denied chest discomfort. She denied shortness of breath. She denies black or maroon-colored stool. She denies urologic symptoms. She denies leg pain, swelling or discoloration. Prior similar symptoms: Yes Recent Illness/Hospitalization: No [facility] Medical History Anxiety and depression Asthma Cervicalgia Diverticulosis Dysphagia Essential (primary) hypertension GERD (gastroesophageal reflux disease) Glaucoma Hiatal hernia Hyperlipidemia OAB (overactive bladder) Obesity (BMI 30-39.9) Postoperative atrial fibrillation (04/29/20) Home Medications albuterol sulfate 90 mcg/actuation aerosol inhaler 2 puff INHALATION Q6H PRN 05/14/20 [History Last Taken Unknown] citalopram 40 mg tablet 60 mg PO DAILY tab 05/14/20 [History Last Taken Unknown] hydrochlorothiazide 12.5 mg tablet 12.5 mg PO DAILY 05/14/20 [History Last Taken Unknown] lisinopril 20 mg tablet 20 mg PO DAILY tab 05/14/20 [History Last Taken 10/07/20] lorazepam 1 mg tablet 1 mg PO QHS tab 05/14/20 [History Last Taken Unknown] trazodone 100 mg tablet 100 mg PO DAILY tab 05/14/20 [History Last Taken Unknown] metoprolol succinate 50 mg tablet,extended release 24 hr 50 mg PO DAILY #90 tab 05/15/20 [Rx Last Taken 10/07/20] hydrocodone-acetaminophen 5-325mg 5mg-325mg 1 tab PO TID PRN tab 09/23/20 [History Last Taken Unknown] methocarbamol 500 mg tablet 500 mg PO Q8H PRN tab 09/23/20 [History Last Taken Unknown] rosuvastatin 10 mg tablet 10 mg PO QHS tab 09/23/20 [History Last Taken Unknown] cyclobenzaprine 10 mg tablet 10 mg PO HS tablet 01/02/21 [History Last Taken Unknown] dexlansoprazole 60 mg capsule,biphase delayed release 60 mg PO DAILY cap 01/02/21 [History Last Taken Unknown] Allergy/AdvReac Type Severity Reaction Status Date / Time gabapentin Allergy Unknown unknown Verified 11/03/21 16:05 Penicillins Allergy Rash Verified 03/11/21 06:37 pregabalin [From Lyrica] Allergy swelling Verified 03/11/21 06:37 morphine AdvReac Vomiting Verified 03/11/21 06:37 NSAIDS (Non-Steroidal AdvReac abdominal Verified 03/11/21 06:37 Anti-Inflamma pain/nausea/GERD Family History Father Heart disease Arthritis Hypertension Mother Heart disease Atrial fib Arthritis Breast cancer Hypertension CVA (cerebral vascular accident) Sister Melanoma Surgical History Cervical vertebral fusion Dupuytren's contracture of right hand (04/29/20) History of bilateral mastectomy History of hand surgery History of hip surgery History of left heart catheterization (10/07/20) History of open reduction and internal fixation (ORIF) procedure History of repair of rotator cuff (02/2020) History of surgical procedure on eye proper using laser History of total knee arthroplasty Social History (Updated 11/03/21 @ 16:[address] Emile Hutson MD) household members: spouse Smoking Status: Never smoker second hand exposure: No alcohol intake: never substance use type: does not use caffeine: Yes Type: coffee Number of servings: 2 what type of physical activity do you participate in: walking frequency: 1-2 times per week ROS ROS ED Constitutional Constitutional ED: Denies chills, fever(s), subjective, sweats or weight loss Eyes Eyes: Reports other Details: Tunnel vision ; Denies blurry vision, change in vision or diplopia ENT ENT ED: Denies ear pain, rhinorrhea or sore throat Cardiovascular Cardiovascular: Denies chest pain, orthopnea, palpitations, paroxysmal nocturnal dyspnea or racing heartbeat Respiratory/Chest Respiratory/Chest: Denies cough, dyspnea, dyspnea on exertion, orthopnea, paroxysmal nocturnal dyspnea or sputum Gastrointestinal Gastrointestinal: Reports nausea; Denies abdominal pain, constipation, diarrhea, melena or vomiting Genitourinary Genitourinary ED: Denies dysuria, hematuria or urinary frequency Musculoskeletal Musculoskeletal: Denies arthralgias, back pain, myalgias or neck pain Integumentary Denies abscess, Abrasions or rash Neurologic Neurologic: Reports weakness; Denies headache(s) or paresthesias Endocrine Endocrinology: Denies polydipsia, polyphagia or polyuria EXAM Physical Exam Const Vital Signs: 11/03/21 16:03 11/03/21 16:06 11/03/21 16:37 Temperature 96.8 F L 96.8 F L Temperature Source Temporal Temporal Pulse Rate 62 62 Respiratory Rate 16 16 Respiratory Effort Normal Respiratory Pattern Normal Blood Pressure 135/76 H 135/76 H Blood Pressure Mean 95 95 Pulse Ox 97 97 Oxygen Delivery Method Room Air Room Air Positive well nourished, well developed and obese; Negative for cachectic, contractures or unkempt General Appearance ED: well developed and NAD; Negative for unkempt, cachectic, contractures, cyanotic, diaphoretic or pallor Nutritional Appearance: obese; Negative for cachectic HEENT Reports moist mucous membranes HEENT Narrative: Nares patent. No clinical findings of head trauma. Negative for trauma or tenderness Eyes EOMs intact bilaterally; Negative for PERRL Eyes Narrative: There is no subconjunctival hemorrhage noted. General Eye ED: Negative for pale conjunctiva or scleral icterus Neck no lymphadenopathy, supple and no JVD General: Negative for tenderness Resp normal respiratory effort and clear to auscultation bilaterally Effort and Inspection: Negative for pain with movement Cardio regular rate, regular rhythm, S1 normal heart sound, S2 normal heart sound and no murmurs GI normal to inspection, nondistended, normoactive bowel sounds, non-tender and non-distended Palpation: soft Back/Spine no CVA tenderness Cervical Spine: Negative for cervical spine tenderness Thoracic Spine / Upper Back: Negative for thoracic spinal tenderness or paraspinal muscle tenderness Extremity normal to inspection Extremity Narrative: There is no asymmetry, swelling, discoloration, leg vein distention, palpable cords or tenderness along the distribution of the deep venous system. General Extremety ED: Negative for edema or tenderness General Extremity: Negative for edema Neuro oriented x3, CN's II-XII intact bilaterally and no sensory deficits noted Sensorium / Orientation: alert Motor Exam: strength 5/5 throughout Psych mental status grossly normal Appearance: Negative for unkempt Skin no rashes or lesions noted and no wounds General Skin Exam: Negative for jaundice or pallor MDM MDM MDM Narrative Medical decision making narrative: Patient with recurrent near syncopal episodes and sickle cell today. Today's episode is consistent with vasovagal. However with history of peptic ulcer disease and GI bleed and recurrent symptoms for weeks will obtain EKG, blood work to evaluate for other causes. Lab Data Attestation: I reviewed the patient's lab results. Lab results narrative: CBC and H&H unremarkable. Creatinine slightly evaded 1.11 with a GFR of 52. Patient laboratory results are unremarkable and do not explain her symptoms. EKG revealed a sinus bradycardia otherwise normal. Labs: Laboratory Results - last 24 hr 11/03/21 11/03/21 16:49 16:49 WBC 8.3 RBC 4.35 Hgb 13.0 Hct 38.6 MCV 88.7 MCH 29.9 MCHC 33.7 RDW Std Deviation 39.9 RDW Coeff of Eduardo 12.3 Plt Count 298 MPV 10.6 Immature Gran % (Auto) 0.400 Neut % (Auto) 50.9 Lymph % (Auto) 38.1 [place] % (Auto) 8.8 Eos % (Auto) 1.3 Baso % (Auto) 0.5 Absolute Neuts (auto) 4.2 Absolute Lymphs (auto) 3.15 Nucleated RBC % 0 Sodium 139 Potassium 3.7 Chloride 105 Carbon Dioxide 30.0 Anion Gap 4 L BUN 22 H Creatinine 1.11 H Estim Creat Clear Calc 40.72 Est GFR (MDRD) Af Amer 62 Est GFR (MDRD) Non-Af 52 L BUN/Creatinine Ratio 19.8 Glucose 83 Calcium 9.0 EKG Initial EKG: Attestation: I personally reviewed and interpreted this EKG as follows: Interpretation: Sinus Bradycardia (Ventricular rate is 59. Other than sinus bradycardia the EKG is normal. WA interval is 180 ms. QS durations 84 ms. QT duration 464 ms. [place] is normal.) Discharge Plan Triage Chief Complaint: Syncope ED Provider: Emile Hutson Dx/Rx/DC Orders Clinical Impression: Syncope and collapse Instructions: ED Fainting, Vagal Reaction Prescriptions: No Action metoprolol succinate [Toprol XL] 50 mg tablet extended release 24 hr 50 mg PO DAILY Qty: 90 RF: 3 lorazepam 1 mg tablet 1 mg PO QHS RF: 0 citalopram 40 mg tablet 60 mg PO DAILY RF: 0 trazodone 100 mg tablet 100 mg PO DAILY RF: 0 lisinopril 20 mg tablet 20 mg PO DAILY RF: 0 albuterol sulfate [Ventolin HFA] 90 mcg/actuation HFA aerosol inhaler 2 puff INHALATION Q6H PRN (Reason: Wheezing Or Cough) RF: 0 hydrochlorothiazide 12.5 mg tablet 12.5 mg PO DAILY RF: 0 rosuvastatin 10 mg tablet 10 mg PO QHS RF: 0 dexlansoprazole 60 mg capsule,biphase delayed releas 60 mg PO DAILY RF: 0 cyclobenzaprine 10 mg tablet 10 mg PO HS RF: 0 methocarbamol 500 mg tablet 500 mg PO Q8H PRN (Reason: Pain Score 1-5) RF: 0 hydrocodone-acetaminophen 5-325 mg tablet 1 tab PO TID PRN (Reason: Pain Score 6-10) RF: 0 Primary Care Provider: Yovanny Self Referrals: Ameya Crawford MD [STAFF PHYSICIAN] - 5-7 Days Yovanny Self MD [Primary Care Provider] - Disposition Disposition: Home, Self Care
--- NOTE | 2021-11-03 16:56 | EKG12_ITS ---
Test Reason : CP Blood Pressure : / mmHG Vent. Rate : 059 BPM Atrial Rate : 059 BPM P-R Int : 180 ms QRS Dur : 084 ms QT Int : 464 ms P-R-T Axes : 043 006 032 degrees QTc Int : 459 ms Sinus bradycardia Otherwise normal ECG When compared with ECG of 08-MAR-2006 12:32, No significant change was found Confirmed by JODY GORDILLO, CATRACHITO ([id number]), editor in chief newspaper SAVAGE ANGELO ([id number]) on 11/06/2021 1:43:23 PM Referred By: CIELO Confirmed By:ALMA VERA MD
[2021-11-03 17:02] VITALS: BP 138/64; PULSE 57; RESP 16; TEMP 36.9; O2SAT 98
[2021-11-03 17:35] LABS: Absolute Lymphocyte Count 3.15 X10^3/uL (0.83-4.51); Absolute Neutrophil Count 4.2 X10^3/uL (2.0-7.7); Basophil# 0.04 X10^3/uL; Basophil% 0.5 % (0-1); Eosinophil# 0.11 X10^3/uL; Eosinophils% 1.3 % (0-5); Hematocrit 38.6 % (37-47); Lymphocyte # 3.15 X10^3/ul (0.83-4.51); Lymphocyte % 38.1 % (19-41); Mean Corp Hgb Conc 33.7 g/dL (32-36); Mean Corpuscular Hgb 29.9 pg (27.0-32.0); Mean Corpuscular Volume 88.7 fL (81-99); Mean Platelet Vol. 10.6 fl (6.2-12.0); Monocyte# 0.73 X10^3/uL; Monocyte% 8.8 % (0-10); NRBC Flagged by Analyzer 0 % (0-5); Neutrophil # 4.21 X10^3/uL (2.7-7.7); Neutrophil % 50.9 % (47-70); Platelet Count 298 K/mm3 (150-450); RBC Distribution Width CV 12.3 % (11.6-14.6); RBC Distribution Width SD 39.9 fl (35.1-43.9); Red Blood Count 4.35 M/mm3 (4.2-5.4); White Blood Count 8.3 K/mm3 (4.4-11.0)
[2021-11-03 17:45] LABS: Anion Gap 4 (5-15); BUN 22 mg/dL (7-18); BUN/Creat Ratio 19.8 RATIO (10-20); Chloride 105 mmol/L (98-107); Creatinine, Serum 1.11 mg/dL (0.55-1.02); EST Glomerular Filtration Rate 52 mL/min (>60); Est Glom Filt Rate - Afr Amer 62 mL/min (>60); Estimated Creatinine Clearance 40.72 ml/min; Glucose 83 mg/dL (74-106); Potassium 3.7 mmol/L (3.5-5.1); Sodium Level 139 mmol/L (136-145)
[2021-11-03 18:08] VITALS: BP 137/75; PULSE 59; RESP 16; TEMP 36.9; O2SAT 98
== END 2021-11-03 18:09 | disposition home or self-care (01) ==
PROVIDERS: Emergency Provider Emergency Medicine; PCP Family Medicine; Visit Provider Emergency Medicine
DX: R55 Syncope and collapse (principal); E66.9 Obesity, unspecified
CPT/HCPCS: 80048; 85025; 93005; 99284

== ENCOUNTER 2022-09-14 13:03 | Emergency (ER) | payer MEDICARE, OTHER, SELFPAY ==
[2022-09-14 13:04] VITALS: BP 128/88; PULSE 87; RESP 14; TEMP 36.3; O2SAT 98; BMI 35.9
--- NOTE | 2022-09-14 14:59 | EX.ED.VIS.UR ---
HPI HPI - URI History of Present Illness Chief Complaint: Cough Detail of Chief Complaint: Seen. Informant: patient Onset/Context/Timing Onset: Days Context: Gradual Onset Timing: Continuous Current Severity: Mild Maximum Severity: Mild Associated Symptoms Associated Symptoms: Positive for Nonproductive cough; Negative for Nausea, Vomiting or Hemoptysis Narrative Narrative: 72-year-old female history of asthma, hypertension intermittent A. fib. States she had URI symptoms for least a week. Cough and expiratory wheezing. Saw urgent care last week treated with Z-Francisco J and has not gotten better. Thinks is gotten into her chest. Has an inhaler at home but has not been using it. Denies any nausea vomiting diarrhea. No fever or chills. No hemoptysis. Prior similar symptoms: Yes Recent Illness/Hospitalization: No ROS ROS ED ROS Narrative Cough. Wheezing. Review of Systems ROS Unobtainable: Denies due to encephalopathy Constitutional Constitutional ED: Denies chills or fever(s) ENT ENT ED: Denies ear pain, rhinorrhea or sore throat Cardiovascular Cardiovascular: Denies chest pain, orthopnea or palpitations Respiratory/Chest Respiratory/Chest: Reports cough and dyspnea; Denies dyspnea on exertion, orthopnea or sputum Gastrointestinal Gastrointestinal: Denies abdominal pain, constipation, diarrhea, melena, nausea or vomiting Genitourinary Genitourinary ED: Denies dysuria or hematuria Musculoskeletal Musculoskeletal: Denies arthralgias Integumentary Denies abscess Neurologic Neurologic: Denies headache(s) Psychiatric Psychiatric: Denies anxiety Endocrine Endocrinology: Denies cold intolerance Hematologic/Lymphatic Hematologic/Lymphatic: Denies easy bleeding Allergic/Immunologic Allergic/Immunologic ED: Denies mouth swelling or tongue swelling [facility] Medical History Anxiety and depression Asthma Cervicalgia Diverticulosis Dysphagia Essential (primary) hypertension GERD (gastroesophageal reflux disease) Glaucoma Hiatal hernia History of thyroid nodule Hyperlipidemia OAB (overactive bladder) Obesity (BMI 30-39.9) Postoperative atrial fibrillation (04/29/20) Thyroid nodule Home Medications albuterol sulfate 90 mcg/actuation aerosol inhaler (Ventolin HFA) 2 puff inhalation Q6H PRN Wheezing Or Cough 05/14/20 [History Last Taken Unknown] citalopram 40 mg tablet 60 mg PO DAILY 05/14/20 [History Last Taken Unknown] lorazepam 1 mg tablet 1 mg PO QHS 05/14/20 [History Last Taken Unknown] hydrocodone-acetaminophen 5-325mg 5mg-325mg 1 tab PO TID PRN Pain Score 6-10 09/23/20 [History Last Taken Unknown] rosuvastatin 10 mg tablet 10 mg PO QHS 09/23/20 [History Last Taken Unknown] cyclobenzaprine 10 mg tablet 10 mg PO HS 01/02/21 [History Last Taken Unknown] lisinopril 20 mg tablet 10 mg PO DAILY dizzy and syncope on higher doses 01/01/22 [History Last Taken Unknown] apixaban 5 mg tablet (Eliquis) 5 mg PO BID #60 tabs 07/03/22 [Rx Last Taken Unknown] budesonide-formoterol HFA 80 mcg-4.5 mcg/actuation aerosol inhaler (Symbicort) 2 puff inhalation BID 07/03/22 [History Last Taken Unknown] omeprazole 40 mg capsule,delayed release 40 mg PO DAILY 07/03/22 [History Last Taken Unknown] trazodone 100 mg tablet 100 mg PO QHS 07/03/22 [History Last Taken Unknown] metoprolol succinate 50 mg tablet,extended release 24 hr (Toprol XL) 25 mg PO BID 07/24/22 [History Last Taken Unknown] amlodipine 5 mg tablet 5 mg PO DAILY #30 tabs 07/27/22 [Rx Last Taken Unknown] levofloxacin 500 mg tablet 500 mg PO DAILY #7 tabs 09/14/22 [Rx Last Taken Unknown] methylprednisolone 4 mg tablets in a dose pack (Medrol (Francisco J)) 4 mg PO DAILY wheezing 5 days #20 tabs 09/14/22 [Rx Last Taken Unknown] Allergy/AdvReac Type Severity Reaction Status Date / Time Penicillins Allergy Rash Verified 09/14/22 13:04 pregabalin [From Lyrica] Allergy swelling Verified 09/14/22 13:04 prednisone AdvReac Unknown Redness Verified 09/14/22 13:04 and fullness of face, didn't feel well. morphine AdvReac Vomiting Verified 09/14/22 13:04 NSAIDS (Non-Steroidal AdvReac abdominal Verified 09/14/22 13:04 Anti-Inflamma pain/nausea/GERD Family History Father Heart disease Arthritis Hypertension Mother Heart disease Atrial fib Arthritis Breast cancer Hypertension CVA (cerebral vascular accident) Sister Melanoma Surgical History Cervical vertebral fusion Dupuytren's contracture of right hand (04/29/20) History of bilateral mastectomy History of hand surgery History of hip surgery History of left heart catheterization (10/07/20) History of open reduction and internal fixation (ORIF) procedure History of repair of rotator cuff (02/2020) History of surgical procedure on eye proper using laser History of total knee arthroplasty Status post fine needle aspiration Social History household members: spouse Smoking Status: Never smoker second hand exposure: No alcohol intake: never substance use type: does not use caffeine: Yes Type: coffee Number of servings: 2 what type of physical activity do you participate in: walking frequency: 1-2 times per week EXAM Physical Exam Narrative Exam Narrative: Well-appearing 72-year-old female. Vital signs stable afebrile. Does not look septic or toxic. No distress. Pulse ox 90% on room air no hypoxia. H EENT exam unremarkable. Neck nontender note JVD. No lymphadenopathy. Lungs clear to auscultation except for few scattered expiratory wheezes. No rales or rhonchi. No distress. Equal symmetrical. Heart regular rhythm rate about 90 no murmur. Abdomen soft nontender. Moving all 4 extremities. Calves are nontender without edema or cords. Back nontender. Neurologic exam normal. Const Vital Signs: 09/14/22 13:04 Temperature 97.4 F L Temperature Source Temporal Pulse Rate 87 Respiratory Rate 14 Blood Pressure 128/88 H Blood Pressure Mean 101 Pulse Ox 98 Oxygen Delivery Method Room Air Positive well nourished and well developed; Negative for cachectic or contractures General Appearance ED: well developed and NAD; Negative for cachectic, contractures, cyanotic, diaphoretic or pallor Nutritional Appearance: Negative for cachectic HEENT Reports moist mucous membranes; Denies dry mucous membranes normocephalic and atraumatic Face and Sinus: Negative for sinus tenderness Mouth ED: No dry mucous membranes Mouth: No dry mucous membranes Teeth and Gingiva: Negative for caries Throat: posterior oropharynx normal; Negative for tonsils abnormal or posterior oropharynx abnormal Eyes PERRL and EOMs intact bilaterally General Eye ED: Negative for pale conjunctiva or scleral icterus Neck no lymphadenopathy, supple, no meningeal signs and no JVD General: Negative for anterior neck swelling or lymphadenopathy Resp normal respiratory effort and No clear to auscultation bilaterally Resp Narrative: Few scattered expiratory wheezes. Effort and Inspection: Negative for retractions or pain with movement Auscultation: wheezes; Negative for rales or rhonchi Cardio S1 normal heart sound, S2 normal heart sound and no murmurs Rate: regular rate Rhythm: regular rhythm GI non-tender, non-distended and no masses Inspection: Negative for abdominal distention Auscultation: normoactive bowel sounds Palpation: soft; Negative for tender Back/Spine no CVA tenderness and normal ROM General Back: Negative for CVA tenderness Cervical Spine: Negative for cervical spine tenderness Thoracic Spine / Upper Back: Negative for thoracic spinal tenderness Lumbar Spine / Lower Back: Negative for lumbar spinal tenderness Sacrum: Negative for tenderness Extremity normal to inspection and full ROM General Extremety ED: Negative for cyanosis or tenderness General Extremity: Negative for cyanosis Neuro oriented x3 and CN's II-XII intact bilaterally Sensorium / Orientation: alert, oriented to person, oriented to place and oriented to time; Negative for orientation impaired, lethargic, stuporous or other Motor Exam: strength 5/5 throughout Psych mental status grossly normal Appearance: Negative for other Attitude: No agitated Mood & Affect: Negative for depressed, anxious or tearful Skin General Skin Exam: Negative for jaundice or pallor Lesions: no lesions Rashes: no rashes Trauma: Negative for abrasion or laceration MDM MDM MDM Narrative Medical decision making narrative: 72-year-old female with URI symptoms expiratory wheezing. Is already been on a Z-Francisco J last week. She has not been using her inhaler. I explained to her this very well could be a viral URI most likely is. Clinically she does not need a chest x-ray and is okay with not getting a chest x-ray. She tells me she cannot take prednisone because it makes her face get red and swells. She has never been placed on dexamethasone before. She will be given a dose of Medrol. And use your inhaler at home. Follow-up if not proving. Discharge Plan Triage Chief Complaint: Cough Other Complaint: Shortness of Breath ED Provider: Nixon Page Dx/Rx/DC Orders Clinical Impression: Viral URI, Bilateral wheezing, History of asthma Instructions: ED Asthma, Acute (Adult), ED URI, Viral W/ Wheezing (Adult) Prescriptions: New methylprednisolone [Medrol (Francisco J)] 4 mg tablets,dose pack 4 mg PO DAILY 5 Days Qty: 20 0RF Rx Instructions: Medrol 4 mg 4 pills day 1, 4 pills day 2, 3 pills day 3, 3 pills day 4, 2 pills daily for 5 days, 2 pills every 6. Again 1 year [address]ld[address] 721 fill date ADEKs total of 20 pills levofloxacin 500 mg tablet 500 mg PO DAILY Qty: 7 0RF No Action lorazepam 1 mg tablet 1 mg PO QHS citalopram 40 mg tablet 60 mg PO DAILY albuterol sulfate [Ventolin HFA] 90 mcg/actuation HFA aerosol inhaler 2 puff INHALATION Q6H PRN (Reason: Wheezing Or Cough) rosuvastatin 10 mg tablet 10 mg PO QHS trazodone 100 mg tablet 100 mg PO QHS cyclobenzaprine 10 mg tablet 10 mg PO HS Label Comments: TAKE 1 TABLET BY MOUTH EVERYDAY AT BEDTIME hydrocodone-acetaminophen 5-325 mg tablet 1 tab PO TID PRN (Reason: Pain Score 6-10) Label Comments: TAKE 1 TABLET BY MOUTH 3 TIMES A DAY NEEDED FOR PAIN lisinopril 20 mg tablet 10 mg PO DAILY omeprazole 40 mg capsule,delayed release(DR/EC) 40 mg PO DAILY budesonide-formoterol [Symbicort] 80-4.5 mcg/actuation HFA aerosol inhaler 2 puff inhalation BID Label Comments: INHALE 2 PUFFS BY MOUTH TWICE DAILY Eliquis 5 mg tablet 5 mg PO BID Qty: 60 11RF metoprolol succinate [Toprol XL] 50 mg tablet extended release 24 hr 25 mg PO BID amlodipine 5 mg tablet 5 mg PO DAILY Qty: 30 11RF Primary Care Provider: Yovanny Self Referrals: Yovanny Self MD [Primary Care Provider] - 1 Week if not improving Activity Restrictions/Additional Instructions: Medrol steroid daily as a tapering dose. Use your inhaler as needed 2 puffs every 4 hours. Only start antibiotic if you are not improving most likely this is a virus causing you to wheeze Follow-up with your doctor if not improving. Disposition Disposition: Home, Self Care
[2022-09-14 15:15] VITALS: O2SAT 95
[2022-09-14 15:24] VITALS: RESP 16; O2SAT 94
== END 2022-09-14 15:24 | disposition home or self-care (01) ==
LOC: ED 15:20
PROVIDERS: Emergency Provider Emergency Medicine; PCP Family Medicine; Visit Provider Emergency Medicine
DX: R06.02 Shortness of breath (principal); J06.9 Acute upper respiratory infection, unspecified; E78.5 Hyperlipidemia, unspecified; I10 Essential (primary) hypertension; J45.909 Unspecified asthma, uncomplicated
CPT/HCPCS: 99282

== ENCOUNTER → 2023-06-15 | Outpatient (CLI) | payer MEDICARE, OTHER, SELFPAY ==
[2023-06-15 08:44] LABS: Absolute Neutrophil Count 4.2 X10^3/uL (2.0-7.7); Basophil# 0.06 X10^3/uL; Basophil% 0.7 % (0-1); Eosinophil# 0.13 X10^3/uL; Eosinophils% 1.6 % (0-5); Hemoglobin 12.7 g/dL (12.0-15.0); Lymphocyte % 36.1 % (19-41); Mean Corp Hgb Conc 32.6 g/dL (32-36); Mean Corpuscular Hgb 29.7 pg (27.0-32.0); Mean Corpuscular Volume 91.3 fL (81-99); Mean Platelet Vol. 10.2 fl (6.2-12.0); Monocyte# 0.83 X10^3/uL; NRBC Flagged by Analyzer 0 % (0-5); Neutrophil # 4.23 X10^3/uL (2.7-7.7); Neutrophil % 50.9 % (47-70); Platelet Count 286 K/mm3 (150-450); RBC Distribution Width SD 43.6 fl (35.1-43.9); Red Blood Count 4.27 M/mm3 (4.2-5.4); White Blood Count 8.3 K/mm3 (4.4-11.0)
[2023-06-15 09:29] LABS: Cholesterol 133 mg/dL (200); High Density Lipoprotein 43 mg/dL; Triglycerides 118 mg/dL; Very Low Density Lipoprotein 24 mg/dL (5-40)
[2023-06-15 09:32] LABS: ALB/GLOB Ratio 1.2 RATIO (0.9-2.4); AST(SGOT) 14 U/L (15-37); Alanine Aminotransfer ALT/SGPT 28 U/L (13-56); Albumin, Serum 3.7 g/dL (3.2-5.0); Alkaline Phosphatase 125 U/L (45-117); Anion Gap 3 (5-15); BUN 15 mg/dL (7-18); BUN/Creat Ratio 16.3 RATIO (10-20); Bilirubin, Direct 0.08 mg/dL (0.00-0.30); Calcium,Total 8.5 mg/dL (8.5-10.1); Chloride 107 mmol/L (98-107); Creatinine, Serum 0.92 mg/dL (0.55-1.02); EST Glomerular Filtration Rate 64 mL/min (>60); Est Glom Filt Rate - Afr Amer 77 mL/min (>60); Globulin 3.2 g/dL (2.2-4.2); Glucose 104 mg/dL (74-106); Potassium 4.2 mmol/L (3.5-5.1); Protein, Total 6.9 g/dL (6.4-8.2); Sodium Level 142 mmol/L (136-145); Thyroid Stim Hormone (TSH) 1.25 uIU/mL (0.358-3.74)
== END | disposition home or self-care (01) ==
LOC: LAB 07:50
PROVIDERS: Nurse Practitioner Gerontology; PCP Internal Medicine; Referring Provider Internal Medicine; Visit Provider Internal Medicine
DX: I10 Essential (primary) hypertension (principal); I48.91 Unspecified atrial fibrillation; E66.9 Obesity, unspecified; R45.0 Nervousness; R00.2 Palpitations
CPT/HCPCS: 36415; 80053; 80061; 82248; 84443; 85025

== ENCOUNTER 2023-09-26 09:17 | Emergency (ER) | payer MEDICARE, OTHER, SELFPAY ==
[2023-09-26 09:18] VITALS: BP 145/82; PULSE 72; RESP 16; TEMP 36.4; O2SAT 98; BMI 35.7
--- NOTE | 2023-09-26 09:46 | ED.VIS.LOWEX ---
HPI History of Present Illness HPI Narrative: Patient presents with pain and swelling to her left lower leg. Patient states she tripped and fell. Patient states she thinks she landed on her left knee. Patient has had a prior left total knee replacement. Patient states she is also on anticoagulants. Patient noted some bruising and swelling immediately. Patient denies any paresthesias or weakness. Patient describes her pain as throbbing. Patient states it is better with rest and elevation. Patient denies any head injury or loss of consciousness. Patient denies any other injuries. Chief Complaint: Lower Extremity Injury Informant: patient Occured/Mechanism Mechanism/Context: Yes fall Onset/Context/Timing Onset: Today Context: Sudden Onset Timing: Continuous Quality of Pain: Throbbing Location: Left proximal tibia Worsened by: Movement, palpation Relieved by: Rest Associated Symptoms Associated Symptoms: Negative for Parasthesia, Weakness or Loss of Funtion [facility] Medical History Anxiety and depression Asthma Cervicalgia Diverticulosis Dysphagia Essential (primary) hypertension GERD (gastroesophageal reflux disease) Glaucoma Hiatal hernia Hyperlipidemia OAB (overactive bladder) Obesity (BMI 30-39.9) Paroxysmal atrial fibrillation Postoperative atrial fibrillation (04/29/20) Thyroid nodule Home Medications hydrocodone-acetaminophen 5-325mg 5mg-325mg 1 tab PO TID PRN Pain Score 6-10 09/23/20 [History Last Taken Unknown] cyclobenzaprine 10 mg tablet 10 mg PO HS 01/02/21 [History Last Taken Unknown] budesonide-formoterol HFA 160 mcg-4.5 mcg/actuation aerosol inhaler (Symbicort) 2 puff inhalation BID #10.2 grams 05/03/23 [Rx Last Taken Unknown] citalopram 40 mg tablet 60 mg (1.5 x 40 mg) PO DAILY #90 tabs 05/03/23 [Rx Last Taken Unknown] omeprazole 40 mg capsule,delayed release 40 mg PO DAILY #90 caps 05/03/23 [Rx Last Taken Unknown] rosuvastatin 10 mg tablet 10 mg PO QHS #90 tabs 05/03/23 [Rx Last Taken Unknown] trazodone 150 mg tablet 150 mg PO QHS #90 tabs 05/03/23 [Rx Last Taken Unknown] metoprolol succinate 50 mg tablet,extended release 24 hr (Toprol XL) 50 mg PO BID #180 tabs 06/14/23 [Rx Last Taken Unknown] albuterol sulfate 90 mcg/actuation aerosol inhaler (Ventolin HFA) 2 puff inhalation Q6H PRN Wheezing Or Cough #8.5 grams 07/07/23 [Rx Last Taken Unknown] apixaban 5 mg tablet (Eliquis) 5 mg PO BID #180 tabs 07/07/23 [Rx Last Taken Unknown] amlodipine 10 mg tablet 10 mg PO DAILY this is a dose increase #90 tabs 07/19/23 [Rx Last Taken Unknown] lisinopril 10 mg tablet 10 mg PO BID this is a dose increase #180 tabs 07/19/23 [Rx Last Taken Unknown] lorazepam 1 mg tablet 1 mg PO QHS #30 tabs 09/21/23 [Rx Last Taken Unknown] Allergy/AdvReac Type Severity Reaction Status Date / Time Penicillins Allergy Rash Verified 09/26/23 09:20 pregabalin [From Lyrica] Allergy swelling Verified 09/26/23 09:20 prednisone AdvReac Unknown Redness Verified 09/26/23 09:20 and fullness of face, didn't feel well. morphine AdvReac Vomiting Verified 09/26/23 09:20 NSAIDS (Non-Steroidal AdvReac abdominal Verified 09/26/23 09:20 Anti-Inflamma pain/nausea/GERD Family History Father Heart disease Arthritis Hypertension Mother Heart disease Atrial fib Arthritis Breast cancer Hypertension CVA (cerebral vascular accident) Sister Melanoma Brother Alcoholism Surgical History Cervical vertebral fusion Dupuytren's contracture of right hand (04/29/20) History of ankle surgery History of bilateral mastectomy History of hand surgery History of hip surgery History of hysterectomy History of left heart catheterization (10/07/20) History of open reduction and internal fixation (ORIF) procedure History of repair of rotator cuff (02/2020) History of surgical procedure on eye proper using laser History of total knee arthroplasty Status post fine needle aspiration Social History household members: spouse current occupational status: retired 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 Smoking Status: Never smoker Electronic Cigarette Use: not used second hand exposure: No alcohol intake: never substance use type: does not use caffeine: Yes Type: coffee Number of servings: 2 what type of physical activity do you participate in: walking frequency: 1-2 times per week do you feel safe at home: Yes ROS ROS ED Constitutional Constitutional ED: Denies chills or fever(s) Eyes Eyes: Denies blurry vision or change in vision ENT ENT ED: Denies rhinorrhea or sore throat Cardiovascular Cardiovascular: Denies chest pain or palpitations Respiratory/Chest Respiratory/Chest: Denies cough or dyspnea Gastrointestinal Gastrointestinal: Denies nausea or vomiting Genitourinary Genitourinary ED: Denies dysuria or hematuria Musculoskeletal Musculoskeletal: Reports back pain and neck pain Integumentary Denies abscess or rash Neurologic Neurologic: Denies headache(s) or weakness Allergic/Immunologic Allergic/Immunologic ED: Denies mouth swelling or urticaria EXAM Physical Exam Const Vital Signs: 09/26/23 09:18 Temperature 97.5 F L Temperature Source Temporal Pulse Rate 72 Respiratory Rate 16 Blood Pressure 145/82 H Blood Pressure Mean 103 Pulse Ox 98 Oxygen Delivery Method Room Air Positive well nourished, well developed and obese General Appearance ED: well developed Nutritional Appearance: obese HEENT Reports moist mucous membranes Extremity Extremity Narrative: There is tenderness, edema, and ecchymosis over the anterior aspect of the left proximal tibia. There is no obvious deformity noted. Range of motion was slightly limited in all motions of the left knee secondary to pain. There is no calf tenderness. Sensation was intact to light touch bilaterally in the lower extremities. Strength is 5/5 bilaterally in the lower extremities. Extensor mechanism is intact. Pedal pulses are equal bilaterally. Neuro oriented x3, CN's II-XII intact bilaterally, moves all extremities and no sensory deficits noted Sensorium / Orientation: alert Motor Exam: strength 5/5 throughout Psych mental status grossly normal MDM MDM MDM Narrative Medical decision making narrative: Differential diagnosis includes contusion, hematoma, and fracture. X-rays of the left tibia and fibula will be obtained to assess for fracture. Radiography Diagnostic Testing: Clinical Impression(s) from Imaging Studies Tibia/Fibula X-Ray 09/26/23 10:26 IMPRESSION: No acute fracture or dislocation identified in the left leg. Electronically Signed: Ada Grossman MD at 10:50 EST Reading Location ID and State: [facility] / [place] Tel , Service support , X-rays of the left tibia and fibula were obtained. There are 2 views. On my independent interpretation, there is no acute fracture or dislocation. There is some mild soft tissue swelling. Radiologist also interpreted the x-ray and agrees. Treatment and Re-Evaluation Narrative: Patient was given an ice pack. Patient was advised of her findings. Patient was instructed to ice and elevate her left leg. Patient was instructed to take Tylenol as needed for pain. Patient understood and was agreeable with the plan. All questions were answered. Discharge Plan Triage Chief Complaint: Lower Extremity Injury ED Provider: Yuan Angeles Dx/Rx/DC Orders Clinical Impression: Fall, Contusion of left lower leg, initial encounter Instructions: ED Contusion, Lower Extremity Prescriptions: No Action cyclobenzaprine 10 mg tablet 10 mg PO HS Patient Comments: TAKE 1 TABLET BY MOUTH EVERYDAY AT BEDTIME hydrocodone-acetaminophen 5-325 mg tablet 1 tab PO TID PRN (Reason: Pain Score 6-10) Patient Comments: TAKE 1 TABLET BY MOUTH 3 TIMES A DAY NEEDED FOR PAIN budesonide-formoterol [Symbicort] 160-4.5 mcg/actuation HFA aerosol inhaler 2 puff inhalation BID Qty: 10.2 1RF citalopram 40 mg tablet 60 mg PO DAILY Qty: 90 1RF omeprazole 40 mg capsule,delayed release(DR/EC) 40 mg PO DAILY Qty: 90 1RF rosuvastatin 10 mg tablet 10 mg PO QHS Qty: 90 1RF trazodone 150 mg tablet 150 mg PO QHS Qty: 90 1RF metoprolol succinate [Toprol XL] 50 mg tablet extended release 24 hr 50 mg PO BID Qty: 180 3RF albuterol sulfate [Ventolin HFA] 90 mcg/actuation HFA aerosol inhaler 2 puff INHALATION Q6H PRN (Reason: Wheezing Or Cough) Qty: 8.5 1RF Eliquis 5 mg tablet 5 mg PO BID Qty: 180 1RF lisinopril 10 mg tablet 10 mg PO BID Qty: 180 3RF amlodipine 10 mg tablet 10 mg PO DAILY Qty: 90 3RF lorazepam 1 mg tablet 1 mg PO QHS Qty: 30 0RF Primary Care Provider: Amy Saleh Referrals: Amy Saleh MD [Primary Care Provider] - 5-7 Days Disposition Disposition: Home, Self Care
--- OUTSIDE RECORDS SUMMARY | 2023-09-26 09:48 | XMS RPT_ITS | CCD ---
Author Name Unknown Address [id number] [place] [address] Organization [facility] Care Team Providers Care Associate Professor Of Counseling Name Role Phone CAROL CAIN Unavailable Unavailable Physician, PCP Unknown Unavailable Unavailab CAROL Villa Unavailable Unavailable CHRISS ANGULO Unavailable Unavailable Physician, PCP Unknown Unavailable Unavailab Mehnaz Valdes NP Unavailable Unavailable Yovanny Wong MD Primary Care Provider Yovanny Wong MD Unavailable YOVANNY WONG Consulting Unavailable YOVANNY WONG Attending Unavailable YOVANNY WONG Admitting Unavailable YOVANNY WONG Primary Care Unavailable PROVIDER, UNKNOWN Consulting Unavailable PROVIDER, UNKNOWN Consulting Unavailable YOVANNY WONG Attending Unavailable YOVANNY WONG Admitting Unavailable JOSELUIS FITZPATRICK MD Referring Unavailable YOVANNY WONG Primary Care Unavailable YOVANNY WONG Consulting Unavailable PROVIDER, UNKNOWN Consulting Unavailable PROVIDER, UNKNOWN Consulting Unavailable Yovanny Wong MD Primary Care Provider Yovanny Wong MD Unavailable Yovanny Wong MD Primary Care Provider Yovanny Wnog MD Unavailable Allergies Allergy Classification Reported Allergen(s) Allergy Type Date of Onset Reaction(s) Facility (11 sources) Morphine Drug Allergy 6 Vomiting, GI Upset [facility] (2 sources) Penicillins Drug Allergy 7 Unknown [facility] (6 sources) Sulfamethoxazole / Trimethoprim Drug Allergy 7 Unknown [facility] (5 sources) Penicillin G Drug Allergy 6 [facility] Work Phone: (4 sources) Penicillins Drug Allergy 7 Unknown [facility] (4 sources) predniSONE Drug Allergy 2 Other: See Comments [facility] Medications Current Medications Medication Drug Class(es) Dates Sig (Normalized) Sig (Original) clindamycin 300 mg oral capsule (7 sources) Lincosamide Antibacterial Start: 04-01-2022 End: 04-11-2022 take 1 capsule by mouth three times daily clindamycin (CLEOCIN) 300 mg capsule Indications: Lymphadenopathy, cervical Take 1 capsule by mouth three times daily for 10 days. 30 capsule 0 04/01/2022 04/11/2022 Active Completed/Discontinued Medications Medication Drug Class(es) Dates Sig (Normalized) Sig (Original) acetaminophen 325 mg / HYDROcodone bitartrate 5 mg oral tablet (8 sources) Opioid Agonist Start: 01-21-2022 take 1 tablet by mouth three times daily as needed for pain HYDROcodone-aceta minophen (NORCO) 5-325 mg per tablet TAKE 1 TABLET BY MOUTH 3 TIMES A DAY NEEDED FOR PAIN 0 01/21/2022 Active Problems Active Problems Problem Classification Problem Date Documented Date Episodic/Chronic Anxiety disorders (6 sources) Anxiety; Translations: [Anxiety disorder, unspecified] Onset: 04-19-2017 02-09-2022 Chronic Asthma (6 sources) Asthma; Translations: [Unspecified asthma, uncomplicated] Onset: 04-19-2017 02-09-2022 Chronic Cardiac dysrhythmias (12 sources) Atrial fibrillation; Translations: [Unspecified atrial fibrillation] Onset: 04-30-2020 02-09-2022 Chronic Disorders of lipid metabolism (6 sources) Hyperlipidemia; Translations: [Hyperlipidemia, unspecified] Onset: 04-19-2017 02-09-2022 Chronic Esophageal disorders (6 sources) Gastroesophageal reflux disease; Translations: [Gastro-esophageal reflux disease without esophagitis] Onset: 04-19-2017 02-09-2022 Chronic Essential hypertension (6 sources) Benign essential hypertension; Translations: [Essential (primary) hypertension] Onset: 04-19-2017 02-09-2022 Chronic Lymphadenitis (1 source) Cervical lymphadenopathy; Translations: [Localized enlarged lymph nodes] Episodic Mood disorders (6 sources) Depressive disorder; Translations: [Depression] Onset: 04-19-2017 02-09-2022 Chronic Osteoarthritis (2 sources) Unilateral primary osteoarthritis, left knee; Translations: [UNI PRIM OSTEOARTHRITIS] Onset: 06-30-2017 Chronic Other connective tissue disease (5 sources) History of total knee arthroplasty; Translations: [Presence of left artificial knee joint] Onset: 07-02-2017 07-02-2017 Chronic Other diseases of bladder and urethra (6 sources) Overactive bladder; Translations: [Overactive bladder] Onset: 04-19-2017 02-09-2022 Chronic Other nervous system disorders (6 sources) Peripheral nerve disease ; Translations: [Polyneuropathy, unspecified] Onset: 03-05-2021 02-09-2022 Chronic Spondylosis; intervertebral disc disorders; other back problems (5 sources) Degeneration of cervical intervertebral disc; Translations: [Other cervical disc degeneration, unspecified cervical region] Onset: 03-08-2017 03-08-2017 Chronic Thyroid disorders (6 sources) Thyroid nodule; Translations: [Nontoxic single thyroid nodule] Onset: 01-10-2021 02-09-2022 Chronic Unclassified (2 sources) Unknown / UNK(Unknown) Onset: 06-09-2017 Past or Other Problems Problem Classification Problem Date Documented Da te Episodic/Chronic Abdominal hernia (6 sources) Hiatal hernia; Translations: [Diaphragmatic hernia without obstruction or gangrene] Onset: 04-19-2017 02-09-2022 Episodic Diabetes mellitus without complication (6 sources) Hyperglycemia; Translations: [Hyperglycemia, unspecified] Onset: 11-03-2020 02-09-2022 Episodic Disorders of teeth and jaw (3 sources) Dental abscess; Translations: [Periapical abscess without sinus] Onset: 04-13-2022 04-13-2022 Episodic Immunizations and screening for infectious disease (6 sources) Patient encounter status; Translations: [Encounter for immunization] Onset: 08-31-2017 02-09-2022 Episodic Nonmalignant breast conditions (5 sources) Breast problem; Translations: [Disorder of breast, unspecified] Onset: 05-11-2006 02-18-2009 Episodic Other circulatory disease (6 sources) Orthostatic hypotension; Translations: [Orthostatic hypotension] Onset: 11-05-2021 02-09-2022 Episodic Other circulatory disease (6 sources) Syncope due to orthostatic hypotension; Translations: [Orthostatic hypotension] Onset: 11-05-2021 02-09-2022 Episodic Other connective tissue disease (6 sources) Fibromyalgia; Translations: [Fibromyalgia] Onset: 10-25-2019 02-09-2022 Episodic Other skin disorders (6 sources) Neck swelling; Translations: [Localized swelling, mass and lump, neck] Onset: 01-06-2021 02-09-2022 Episodic Other upper respiratory infections (6 sources) Acute upper respiratory infection; Translations: [Acute upper respiratory infection, unspecified] Onset: 06-30-2019 02-09-2022 Episodic Residual codes; unclassified (6 sources) Edema of lower extremity; Translations: [Localized edema] Onset: 03-05-2021 02-09-2022 Episodic Spondylosis; intervertebral disc disorders; other back problems (5 sources) Spinal stenosis in cervical region; Translations: [Spinal stenosis, cervical region] Onset: 03-08-2017 03-08-2017 Episodic Unclassified (1 source) K219 M797 I10 [id number] Onset: 06-09-2017 Unclassified (1 source) BACK PAIN, M54.5 Onset: 06-28-2017 Results Test Name Value Interpretation Reference Range Facil ity Vital Signs Date Time Vital Sign Value Performing Clinician Christina mandujano 04-01-2022 14:45-0400 Body height 165.1 cm Filomena Srivastava APRN.CNP Work Phone: [facility] 04-01-2022 14:45-0400 Body temperature 97.3 [degF] Filomena Srivastava APRN.CNP Work Phone: [facility] 04-01-2022 14:45-0400 Body weight 96.44 kg Filomena Srivastava APRN.CNP Work Phone: [facility] 04-01-2022 14:45-0400 Diastolic blood pressure 76 mm[Hg] Filomena Srivastava APRN.CNP Work Phone: [facility] 04-01-2022 14:45-0400 Heart rate 77 /min Filomena Srivastava APRN.CNP Work Phone: [facility] 04-01-2022 14:45-0400 Respiratory rate 14 /min Filomena Srivastava APRN.FORENSIC SCIENCE TECHNICIAN Work Phone: [facility] 04-01-2022 14:45-0400 SaO2% (BldA) [Mass fraction] 97 % Filomena Srivastava HYDROLOGIST.FORENSIC SCIENCE TECHNICIAN Work Phone: [facility] 04-01-2022 14:45-0400 Systolic blood pressure 131 mm[Hg] Filomena Srivastava HYDROLOGIST.FORENSIC SCIENCE TECHNICIAN Work Phone: [facility] 12-03-2021 11:49-0400 Body temperature 96.6 [degF] Yovanny Wong MD Work Phone: [facility] 12-03-2021 11:49-0400 Body weight 95.25 kg Yovanny Wong MD Work Phone: [facility] 12-03-2021 11:49-0400 Diastolic blood pressure 82 mm[Hg] Yovanny Wong MD Work Phone: [facility] 12-03-2021 11:49-0400 Heart rate 74 /min Yovanny Wong MD Work Phone: [facility] 12-03-2021 11:49-0400 Respiratory rate 14 /min Yovanny Wong MD Work Phone: [facility] 12-03-2021 11:49-0400 SaO2% (BldA) [Mass fraction] 94 % Yovanny Wong MD Work Phone: [facility] 12-03-2021 11:49-0400 Systolic blood pressure 136 mm[Hg] Yovanny Wong MD Work Phone: [facility] Encounters Encounter Date Encounter Type Care Provider Facility Start: 08-07-2023 Patient encounter procedure [facility] Provider [facility] Department Start: 10-05-2022 Refill Yovanny Jorgensen MD Work Phone: [facility] [place] Procedures Date Procedure Procedure Detail Performing Clinician Start: 05-25-2019 Colonoscopy Yovanny clark MD Work Phone: Plan of Treatment Date Care Activity Detail Author Start: 05-25-2029 Colonoscopy COLONOSCOPY [facility] Start: 05-25-2029 COLORECTAL CANCER SCREENING COLORECTAL CANCER SCREENING [facility] Start: 04-06-2025 DIABETES SCREEN DIABETES SCREEN [facility] Start: 04-06-2025 Diabetes Screening Diabetes Screenin g [facility] Start: 05-21-2023 Covid-19 Vaccine ( season) Covid-19 Vaccine ( season) [facility] Start: 05-21-2023 Influenza vaccination Influenza Vacc ine (#1) [facility] Start: 04-13-2023 ANNUAL PCP TEAM FISHER TRAWL LINE THA DISEASE VISIT ANNUAL PCP TEAM CHRONIC DISEASE VISIT [facility] Start: 04-01-2023 ANNUAL PCP TEAM FISHER TRAWL LINE THA DISEASE VISIT ANNUAL PCP TEAM CHRONIC DISEASE VISIT [facility] Start: 09-20-2022 ADVANCE DIRECTIVE DISCUSSION ADVANCE DIRECTIVE DISCUSSION [facility] Start: 05-21-2022 Influenza vaccination INFLUENZA (#1) [facility] Start: 09-20-2021 ADVANCE DIRECTIVE DISCUSSION ADVANCE DIRECTIVE DISCUSSION [facility] Start: 05-20-2021 COVID-19 VACCINE (3 - Booster for Moderna series) COVID-19 VACCINE (3 - Booster for Moderna series) [facility] Start: 02-12-2021 COVID-19 VACCINE (3 - Booster for Moderna series) COVID-19 VACCINE (3 - Booster for Moderna series) [facility] Start: 06-22-2020 PNEUMOCOCCAL: 65+ (2 - PPSV23 if available, else PCV20) PNEUMOCOCCAL: 65+ (2 - PPSV23 if available, else PCV20) [facility] Start: 06-22-2020 PNEUMOCOCCAL: 65+ (2 - PPSV23 or PCV20) PNEUMOCOCCAL: 65+ (2 - PPSV23 or PCV20) [facility] Start: 08-17-2019 Pneumococcal Vaccine : 65+ (2 - PPSV23 or PCV20) Pneumococcal Vaccine: 65+ (2 - PPSV23 or PCV20) [facility] Start: 2016 BONE DENSITY BONE DENSITY [facility] Start: 2016 Bone Density Screening Bone Density Screening [facility] Start: 2016 PNEUMOVAX AGE 65 AND OVER WITH 5YR LOOKBACK (#1) PNEUMOVAX AGE 65 AND OVER WITH 5YR LOOKBACK (#1) [facility] Start: 2011 RSV Vaccine (1 - 1-d ose 60+ series) RSV Vaccine (1 - 1-dose 60+ series) [facility] Start: 12-23-2009 DIABETES SCREEN DIABETES SCREEN [facility] Start: 2001 SHINGRIX VACCINE (1 of 2) SHINGRIX V ACCINE (1 of 2) [facility] Start: 1996 COLOGUARD (FIT-DNA) COLOGUARD (FIT-D NA) [facility] Start: 1996 Colonoscopy COLONOSCOPY [facility] Start: 1996 COLORECTAL CANCER SCREENING COLORECTAL CANCER SCREENING [facility] Start: [address] COLONOGRAPHY [facility] Start: 1996 DIABETES SCREEN DIABETES SCREEN [facility] Start: 1996 FECAL OCCULT BLOOD FECAL OCCULT BLOO D [facility] Start: 1996 Lipid 1996 panel - S coby or Plasma Lipid Screening [facility] Start: 1996 LIPID SCREEN LIPID SCREEN [facility] Start: 1996 SIGMOIDOSCOPY SIGMOIDOSCOPY [facility] Start: 1991 Mammography [facility] Start: 1970 Urine microalbumin profile [facility] Start: 1969 ANNUAL PCP TEAM FISHER TRAWL LINE THA DISEASE VISIT ANNUAL PCP TEAM CHRONIC DISEASE VISIT [facility] Start: 1969 BP CONTROLLED (<130/80) BP CONTROLLE D (<130/80) [facility] Start: 1969 HEPATITIS C SCREENING HEPATITIS C SC CARO CENTERNING [facility] Start: 1969 SPIROMETRY SPIROMETRY [facility] Start: 1963 Adult depression [facility] assessment DEPRESSION SCREENING [facility] Start: 1956 COVID-19 VACCINE (#1) COVID-19 VACCI NE (#1) [facility] Immunizations Immunization Date Immunization Notes Care Provider [facility] 07-09-2021 influenza virus vacc ine, unspecified formulation [facility] Provider [facility] 06-30-2021 zoster vaccine recombinant Yovanny Wong MD Work Phone: [facility] 04-14-2021 zoster vaccine recombinant Yovanny Wong MD Work Phone: [facility] 12-18-2020 COVID-19 vaccine, fu ll dose (MODERNA) Yovanny Wong MD Work Phone: [facility] 11-21-2020 COVID-19 vaccine, fu ll dose (MODERNA) Yovanny Wong MD Work Phone: [facility] 06-07-2020 influenza, high-dose , quadrivalent vaccine (FLUZONE HIGH DOSE QUADRIVALENT) Yovanny Wong MD Work Phone: [facility] 06-22-2019 influenza, high dose seasonal, preservative-free Yovanny Wong MD Work Phone: [facility] 06-22-2019 pneumococcal conjuga te vaccine, 13 valent Yovanny Wong MD Work Phone: [facility] 08-13-2008 influenza virus vacc ine, whole virus Yovanny Wong MD Work Phone: [facility] Payers Date Payer Category Payer Unknown MMO MMO MEDICARE SUPPLEMENT [id number] 2020-Present [phone] [address] [place] [address] Indemnity [id number] 2020 Unknown MMO MMO MEDICARE SUPPLEMENT [id number] 2020-Present [phone] [address] [place] [address] Indemnity [id number] 2016 Medicare 2016 Medicare MEDICARE MEDICAR E A AND B [id number] 2016-Present [phone] [address] [address] [place] [address] Medicare [id number] 1950 Unknown [id number] 1950 Unknown [id number] Medicare [id number] Medicare [id number] Unknown [id number] Social History Date Type Detail Facility Start: 02-09-2022 Tobacco smoking stat us NHIS Never smoked tobacco [facility] Start: 1950 Sex Assigned At Not on file [facility] Start: 02-09-2022 Tobacco use and exposure Smoke less tobacco non-user [facility] Start: 03-06-2022 End: 04-01-2022 Alcohol intake Current drinker of alcohol (finding) [facility] Start: 04-01-2022 Education 21 [facility] Start: 03-22-2022 End: 04-13-2022 Exposure to SARS-CoV-2 (event) Not sure [facility] Start: 04-01-2022 End: 10-05-2022 History of Social function [facility] Start: 04-01-2022 End: 10-05-2022 Tobacco use panel [facility] Adult Depression Scr eening Assessment 0 [facility] Note 10-05-2022 Telephone Encounter - Jenna Sterling LPN - 10/05/2022 10:38 AM EST Note Date & Type Note Facility 10-05-2022 Miscellaneous Notes Formattin g of this note is different from the original. Patient phones requesting refills as follows: JACQUIE 04/13/2022 NOV 10/19/2022 CHANO SIMPSON Requested Prescriptions Pending Prescriptions Disp Refills citalopram (CELEXA) 40 mg tablet 135 tablet 2 Sig: Take 1.5 tablets by mouth once daily. Please review and advise. Jenna Sterling LPN documented in this encounter [facility] Note 04-22-2022 Telephone Encounter - Joleen Prescott LPN - 04/22/2022 8:22 AM EDT Note Date & Type Note Facility 04-22-2022 Miscellaneous Notes Pending Prescriptions Disp Refills METOPROLOL SUCCINATE ER 50 MG TABLET,EXTENDED RELEASE 24 HR 90 tablet 3 Sig: TAKE 1 TABLET BY MOUTH EVERY DAY DELILAH: Yes Joleen Prescott LPN April 22, 2022 8:22 AM documented in this encounter [facility] Progress note 04-13-2022 Note Date & Type Note Facility 04-13-2022 Note HNO ID: [id number] Author: Yovanny Wong MD Service: ? Author Type: Physician Type: Progress Notes Filed: 04/13/2022 2:04 PM Note Text: This note was created using AmberPointriter. Subjective Roselyn Delgadillo is a 71 year old female who presents today for follow-up. She was seen last week for a dental infection. She was placed on antibiotic without complete resolution of her symptoms. She is having some continued discomfort and it seems to be getting worse.. Review of Systems Constitutional: Negative. HENT: Positive for dental problem and mouth sores. Eyes: Negative. Respiratory: Negative. Cardiovascular: Negative. Gastrointestinal: Negative. Endocrine: Negative. Genitourinary: Negative. Musculoskeletal: Negative. Skin: Negative. Allergic/Immunologic: Negative. Neurological: Negative. Hematological: Negative. Psychiatric/Behavioral: Negative. Objective BP 122/80 (BP Site: Left Arm, BP Position: Sitting, BP Cuff Size: Large Adult) Pulse 72 Resp 18 Ht 167.6 cm (5' 6 ) Wt 96.8 kg (213 lb 6.4 oz) SpO2 96% BMI 34.44 kg/m? Physical Exam Vitals reviewed. Constitutional: Appearance: Normal appearance. HENT: Head: Normocephalic and atraumatic. Nose: Nose normal. Eyes: Extraocular Movements: Extraocular movements intact. Pupils: Pupils are equal, round, and reactive to light. Cardiovascular: Rate and Rhythm: Normal rate and regular rhythm. Pulmonary: Effort: Pulmonary effort is normal. Breath sounds: Normal breath sounds. Abdominal: General: Bowel sounds are normal. Palpations: Abdomen is soft. Musculoskeletal: General: Normal range of motion. Cervical back: Normal range of motion and neck supple. Skin: General: Skin is warm and dry. Capillary Refill: Capillary refill takes less than 2 seconds. Neurological: General: No focal deficit present. Mental Status: She is alert and oriented to person, place, and time. Mental status is at baseline. Psychiatric: Mood and Affect: Mood normal. Behavior: Behavior normal. Assessment and Plan Roselyn was seen today for follow up. Diagnoses and all orders for this visit: Anxiety - LORazepam (ATIVAN) 1 mg tablet; qhs Tooth abscess Other orders - albuterol HFA (PROVENTIL HFA, VENTOLIN HFA) 90 mcg/actuation inhaler; Inhale 2 Puffs as instructed every 4 hours as needed for wheezing/shortness of breath. - doxycycline monohydrate (MONODOX) 100 mg capsule; Take 1 capsule by mouth twice daily for 10 days. [facility] Progress note 04-01-2022 Note Date & Type Note Facility 04-01-2022 Note HNO ID: [id number] Author: Filomena Srivastava APRN.FORENSIC SCIENCE TECHNICIAN Service: ? Author Type: Nurse Practitioner Type: Progress Notes Filed: 04/01/2022 5:20 PM Note Text: Chief Complaint: Roselyn Delgadillo is a 71 year old female who presents for enlarged lymph nodes, jaw, and tooth pain History of Present Illness: Patient reports that 3-4 days ago she started to experience some right sided jaw pain, gum pain, and enlarged lymph nodes in her neck. She went to the dentist yesterday for these symptoms and was told there is nothing wrong with her teeth and that she needs to follow up with her PCP. Patient always takes clindamycin before and after dental visits due to hx of joint replacements. Patient took 300mg of clindamycin prior to dental visit and 300 mg after dental visit which she reports has improved her symptoms however the symptoms are still present. Patient denies any difficulty swallowing or breathing . PAST MEDICAL HISTORY Diagnosis Date - Anxiety state - Asthma - Cervicalgia - Depression - GERD (gastroesophageal reflux disease) - Hiatal hernia - HTN (hypertension), benign - Hyperlipidemia - Overactive bladder - Thyroid nodule 2020 PAST SURGICAL HISTORY Procedure Laterality Date - MASTECTOMY HX 2009 Double - PAST SURGICAL HISTORY OF 2001 Cervical Neck Fusion - PAST SURGICAL HISTORY OF 2009 Tibia Plateau - PAST SURGICAL HISTORY OF Right hip restorative-torn tendon - PAST SURGICAL HISTORY OF Laser on eyes for glaucoma - REPAIR ROTATOR CUFF,ACUTE 02/2020 - TOTAL KNEE REPLACEMENT Right 2013 - TOTAL KNEE REPLACEMENT Left 2017 Current Outpatient Medications on File Prior to Visit Medication Sig - gabapentin (NEURONTIN) 300 mg capsule TAKE 1 CAPSULE BY MOUTH EVERYDAY AT BEDTIME - SYMBICORT 80-4.5 mcg/actuation inhaler Inhale 2 Puffs as instructed twice daily. - citalopram (CELEXA) 40 mg tablet Take 1.5 tablets by mouth once daily. - clindamycin (CLEOCIN) 300 mg capsule TAKE 2 CAPSULES 1 HOUR PRIOR TO DENTAL PROCEDURE THEN TAKE 1 CAPSULE 6 HOURS AFTER DENTAL PROCEDURE - diclofenac (VOLTAREN) 1 % topical gel Apply to affected area. - HYDROcodone-acetaminophen (NORCO) 5-325 mg per tablet TAKE 1 TABLET BY MOUTH 3 TIMES A DAY NEEDED FOR PAIN - rosuvastatin (CRESTOR) 10 mg tablet TAKE 1 TABLET BY MOUTH EVERY DAY AT NIGHT - traZODone (DESYREL) 100 mg tablet TAKE 1 TABLET BY MOUTH EVERY DAY AT NIGHT DIRECTED - lisinopril (ZESTRIL, PRINIVIL) 20 mg tablet Take 10 mg by mouth once daily. - albuterol HFA (PROVENTIL HFA, VENTOLIN HFA) 90 mcg/actuation inhaler Inhale as instructed. - metoprolol succinate ER (TOPROL XL) 50 mg 24 hr tablet Take 25 mg by mouth once daily. - cyclobenzaprine (FLEXERIL) 10 mg tablet - NEXIUM 40 MG CAP Take one(1) tablet daily. - ATIVAN 1 MG TAB qhs - ESCITALOPRAM 20 MG TAB (Patient not taking: ) No current facility-administered medications on file prior to visit. ALLERGIES Allergen Reactions - Morphine Vomiting - Penicillins Unknown - Sulfamethoxazole-Tr* Unknown - Morphine GI Upset - Penicillin G - Prednisone Other: See Comments Social History Tobacco Use - Smoking status: Never Smoker - Smokeless tobacco: Never Used Vaping Use - Vaping Use: Never used Substance Use Topics - Alcohol use: Yes - Drug use: No FAMILY HISTORY Problem Relation Age of Onset - Heart disease Mother - Heart disease Father Review Of Systems Skin: negative Eyes: negative Ears/Nose/Throat: gum pain, jaw pain, teeth pain, and enlarged lymph nodes in neck for 3 days. Respiratory: No cough, hemoptysis, asthma, recent chest infection, wheezing Cardiovascular: No history of chest pain, palpitation, orthopnea, cyanosis, pedal edema Gastrointestinal: No blood in stool, pain with BM, tarry stool, persistent diarrhea or constipation Genitourinary: No burning with urination, blood in urine or incontinence and No change in vaginal discharge, burning, dryness or itching Musculoskeletal: negative Neurologic: No history of headaches, syncope, paralysis, seizures or tremors Psychiatric: negative Hematologic/Lymphatic/Immunologic: negative Endocrine: No history of thyroid disorder, diabetes, cold intolerance, heat intolerance, polydypsia PHYSICAL EXAMINATION: BP 131/76 (BP Site: Right Arm, BP Position: Sitting, BP Cuff Size: Regular Adult) Pulse 77 Temp 36.3 ?C (97.3 ?F) (Temporal) Resp 14 Ht 165.1 cm (5' 5 ) Wt 96.4 kg (212 lb 9.6 oz) SpO2 97% BMI 35.38 kg/m? Physical Exam Constitutional: Appearance: Normal appearance. She is obese. HENT: Head: Normocephalic and atraumatic. Right Ear: Tympanic membrane, ear canal and external ear normal. Left Ear: Tympanic membrane, ear canal and external ear normal. Nose: Nose normal. Mouth/Throat: Mouth: Mucous membranes are moist. Pharynx: Oropharynx is clear. No oropharyngeal exudate or posterior oropharyngeal erythema. Eyes: Extra (more content not included)... [facility] History of Present illness Narrative 04-01-2022 Filomena Srivastava APRN.[facility] - 04/01/2022 5:11 PM EDT Note Date & Type Note Facility 04-01-2022 History of Presen t illness Narrative Chief Complaint: Roselyn Delgadillo is a 71 year old female who presents for enlarged lymph nodes, jaw, and tooth pain History of Present Illness: Patient reports that 3-4 days ago she started to experience some right sided jaw pain, gum pain, and enlarged lymph nodes in her neck. She went to the dentist yesterday for these symptoms and was told there is nothing wrong with her teeth and that she needs to follow up with her PCP. Patient always takes clindamycin before and after dental visits due to hx of joint replacements. Patient took 300mg of clindamycin prior to dental visit and 300 mg after dental visit which she reports has improved her symptoms however the symptoms are still present. Patient denies any difficulty swallowing or breathing . PAST MEDICAL HISTORY Diagnosis Date Anxiety state Asthma Cervicalgia Depression GERD (gastroesophageal reflux disease) Hiatal hernia HTN (hypertension), benign Hyperlipidemia Overactive bladder Thyroid nodule 2020 PAST SURGICAL HISTORY Procedure Laterality Date MASTECTOMY HX 2009 Double PAST SURGICAL HISTORY OF 2001 Cervical Neck Fusion PAST SURGICAL HISTORY OF 2010 Tibia Plateau PAST SURGICAL HISTORY OF Right hip restorative-torn tendon PAST SURGICAL HISTORY OF Laser on eyes for glaucoma REPAIR ROTATOR CUFF,ACUTE 02/2020 TOTAL KNEE REPLACEMENT Right 2014 TOTAL KNEE REPLACEMENT Left 2017 Current Outpatient Medications on File Prior to Visit Medication Sig gabapentin (NEURONTIN) 300 mg capsule TAKE 1 CAPSULE BY MOUTH EVERYDAY AT BEDTIME SYMBICORT 80-4.5 mcg/actuation inhaler Inhale 2 Puffs as instructed twice daily. citalopram (CELEXA) 40 mg tablet Take 1.5 tablets by mouth once daily. clindamycin (CLEOCIN) 300 mg capsule TAKE 2 CAPSULES 1 HOUR PRIOR TO DENTAL PROCEDURE THEN TAKE 1 CAPSULE 6 HOURS AFTER DENTAL PROCEDURE diclofenac (VOLTAREN) 1 % topical gel Apply to affected area. HYDROcodone-acetaminophen (NORCO) 5-325 mg per tablet TAKE 1 TABLET BY MOUTH 3 TIMES A DAY NEEDED FOR PAIN rosuvastatin (CRESTOR) 10 mg tablet TAKE 1 TABLET BY MOUTH EVERY DAY AT NIGHT traZODone (DESYREL) 100 mg tablet TAKE 1 TABLET BY MOUTH EVERY DAY AT NIGHT DIRECTED lisinopril (ZESTRIL, PRINIVIL) 20 mg tablet Take 10 mg by mouth once daily. albuterol HFA (PROVENTIL HFA, VENTOLIN HFA) 90 mcg/actuation inhaler Inhale as instructed. metoprolol succinate ER (TOPROL XL) 50 mg 24 hr tablet Take 25 mg by mouth once daily. cyclobenzaprine (FLEXERIL) 10 mg tablet NEXIUM 40 MG CAP Take one(1) tablet daily. ATIVAN 1 MG TAB qhs ESCITALOPRAM 20 MG TAB (Patient not taking: ) No current facility-administered medications on file prior to visit. ALLERGIES Allergen Reactions Morphine Vomiting Penicillins Unknown Sulfamethoxazole-Tr* Unknown Morphine GI Upset Penicillin G Prednisone Other: See Comments Social History Tobacco Use Smoking status: Never Smoker Smokeless tobacco: Never Used Vaping Use Vaping Use: Never used Substance Use Topics Alcohol use: Yes Drug use: No FAMILY HISTORY Problem Relation Age of Onset Heart disease Mother Heart disease Father Review Of Systems Skin: negative Eyes: negative Ears/Nose/Throat: gum pain, jaw pain, teeth pain, and enlarged lymph nodes in neck for 3 days. Respiratory: No cough, hemoptysis, asthma, recent chest infection, wheezing Cardiovascular: No history of chest pain, palpitation, orthopnea, cyanosis, pedal edema Gastrointestinal: No blood in stool, pain with BM, tarry stool, persistent diarrhea or constipation Genitourinary: No burning with urination, blood in urine or incontinence and No change in vaginal discharge, burning, dryness or itching Musculoskeletal: negative Neurologic: No history of headaches, syncope, paralysis, seizures or tremors Psychiatric: negative Hematologic/Lymphatic/Immunologic: negative Endocrine: No history of thyroid disorder, diabetes, cold intolerance, heat intolerance, polydypsia PHYSICAL EXAMINATION: BP 131/76 (BP Site: Right Arm, BP Position: Sitting, BP Cuff Size: Regular Adult) Pulse 77 Temp 36.3 C (97.3 F) (Temporal) Resp 14 Ht 165.1 cm (5' 5 ) Wt 96.4 kg (212 lb 9.6 oz) SpO2 97% BMI 35.38 kg/m Physical Exam Constitutional: Appearance: Normal appearance. She is obese. HENT: Head: Normocephalic and atraumatic. Right Ear: Tympanic membrane, ear canal and external ear normal. Left Ear: Tympanic membrane, ear canal and external ear normal. Nose: Nose normal. Mouth/Throat: Mouth: Mucous membranes are moist. Pharynx: Oropharynx is clear. No oropharyngeal exudate or posterior oropharyngeal erythema. Eyes: Extraocular Movements: Extraocular movements intact. Conjunctiva/sclera: Conjunctivae normal. Pupils: Pupils are equal, round, and reactive to light. Neck: Vascular: No carotid bruit. Cardiovascular: Rate and Rhythm: Normal rate and regular rhythm. Pulses: Normal pulses. Heart sounds: Normal heart sounds. No murmur heard. Pulmonary: Effort: Pulmonary effort is normal. Breath sounds: Normal breath sounds. Musculoskeletal: Cervical back: Normal range of motion. Tenderness present. Lymphadenopathy: Cervical: Cervical adenopathy present. Neurological: Mental Status: She is alert. Psychiatric: Mood and Affect: Mood normal. Behavior: Behavior normal. Thought Content: Thought content normal. Judgment: Judgment normal. ASSESSMENT/PLAN: 1. Lymphadenopathy, cervical - ICD9: 785.6, ICD10: R59.0 Patient to take clindamycin 300mg by mouth TID x 10 days. Follow up in 2 weeks. - CLINDAMYCIN HCL 300 MG CAPSULE Filomena Srivastava APRN.FORENSIC SCIENCE TECHNICIAN documented in this encounter [facility] Instructions 04-01-2022 Patient Instructions Note Date & Type Note Facility 04-01-2022 Instructions Filomena Srivastava APRN.[facility] - 04/01/2022 3:21 PM EDT - Take Clindamycin 300mg by mouth three time a day for 10 days - Notify office if symptoms do not improve. Go to ER if symptoms worsen - Follow up in 2 weeks. documented in this encounter [facility] Nurse Note 04-01-2022 Stephanie Douglas LPN - 04/01/2022 3:00 PM EDT Note Date & Type Note Facility 04-01-2022 Nurse Note PT states her symptoms started on Wednesday. Her right side of jaw is swollen and hurts. Pain scale 7/10. Describes the pain as throbbing. She also states she has swollen lymph nodes bilateral. documented in this encounter [facility] Progress note 07-29-2021 Note Date & Type Note Facility 07-29-2021 Note HNO ID: [id number] Author: Keila Monzon MD Service: ? Author Type: Physician Type: Progress Notes Filed: 07/30/2021 9:50 AM Note Text: Endocrinology Consult NEW patient CC: Thyroid nodules Ms. Roselyn Delgadillo is a 71 year old old woman who presents with thyroid nodules. She reports she felt something in her throat. She had ultrasound of the thyroid and then had an FNA of the left nodule which was benign. She reports she was having swallowing issues. They tested her for swallowing. They could not get the tube up her nose. She reports her swallowing is fine. She has a hoarseness. She reports then she developed some swelling around the left neck. She has a lump on her breast. She reports she has lost some weight. Lost 8lbs in one month. Changes in bowel movements. She reports her voice gets raspy. ROS otherwise negative. Past medical history: HTN Neuropathy in feet Fibromyalgia Glaucoma Family hx mother had breast cancer. Surgical history-had bilateral mastectomy. She did not have cancer. She had reconstructive surgery. Had both knees replaced. Tendon tear in hip, broke leg. She has two chocolate labs and they came around her side and she had tibial plateau fracture. Had appendectomy, gallbladder removed.sp hysterectomy. Has had rotator cuff surgery. Social-here with . Retired. 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 ALLERGIES Allergen Reactions - Morphine GI Upset - Penicillin G Current Outpatient Medications Medication Sig - traZODone (DESYREL) 100 mg tablet Take by mouth. - lisinopril (ZESTRIL, PRINIVIL) 20 mg tablet - hydroCHLOROthiazide (HYDRODIURIL, ESIDRIX) 12.5 mg tablet Take by mouth. - gabapentin (NEURONTIN) 300 mg capsule - albuterol HFA (PROVENTIL HFA, VENTOLIN HFA) 90 mcg/actuation inhaler Inhale as instructed. - metoprolol succinate ER (TOPROL XL) 50 mg 24 hr tablet - HYDROcodone-acetaminophen (NORCO) 5-325 mg per tablet - rosuvastatin (CRESTOR) 10 mg tablet - cyclobenzaprine (FLEXERIL) 10 mg tablet - citalopram (CELEXA) 40 mg tablet Take by mouth. - Dexlansoprazole 60 mg CpDM Take by mouth. - diclofenac (VOLTAREN) 1 % topical gel 1 %. - erythromycin (ROMYCIN) 5 mg/gram (0.5 %) ophthalmic ointment - lansoprazole (PREVACID) 30 mg capsule Take by mouth. - methocarbamol (ROBAXIN) 500 mg tablet Take by mouth. - propoxyphene napsylate-acetaminophen (DARVOCET-N 100) 100-650 mg ORAL Tab Take one (1) tablet every four hours prn as needed for pain - NEXIUM 40 MG CAP Take one(1) tablet daily. - ATIVAN 1 MG TAB qhs - ESCITALOPRAM 20 MG TAB - PREMARIN 0.3 MG TAB No current facility-administered medications for this visit. Social History Tobacco Use - Smoking status: Never Smoker - Smokeless tobacco: Never Used Substance Use Topics - Alcohol use: Yes - Drug use: No ALLERGIES Allergen Reactions - Morphine GI Upset - Penicillin G REVIEW OF SYSTEMS GENERALSEE HPI HEENT: Negative for frequent or significant headaches, No changes in hearing or vision, no nose bleeds or other nasal problems NECK: see hpi RESPIRATORY: Negative for cough, wheezing or shortness of breath. CARDIOVASCULAR: Negative for chest pain, leg swelling or palpitations. GI: Negative for abdominal discomfort, blood in stools or black stools or change in bowel habits MUSCULOSKELETAL:on pain medications prn SKIN: Negative for lesions, rash, and itching. : No polyuria or dysuria. HEMATOLOGY/LYMPHOLOGY: Negative for prolonged bleeding, bruising easily or swollen nodes. ENDOCRINE: thyroid nodule NEURO: No tremors All other reviewed and negative other than HPI. BP 136/80 Pulse 64 Wt 96.3 kg (212 lb 6.4 oz) SpO2 94% Physical Examination General: alert and oriented X 3, well appearing, pleasant and in no acute distress HEENT: eyes without erythema or icterus, no neck lymphadenopathy or mass. +left nodule LN: No palpable cervical or supraclavicular lymphadenopathy. Skin: no rash, no nail changes Cardiac: RRR, no murmur gallop or rub, no peripheral edema Respiratory: CTA bilaterally, no wheezing or rhonchi Gastrointestinal: soft, NT, no palpable masses Musculoskeletal: no notable extremity weakness Neurological: symmetric reflexes bilateral upper and lower extremities. CNII-XII intact Impression and Plan: Multinodular goiter She had Left dominant nodule which was previously biopsied 12/2020 and benign (note she does not have this report with her today. I have asked that she get this.).No evidence of compression on neck exam. The repeat ultrasound done 07/10 shows that this L thyroid nodule is actually smaller than previous. Given BIOPSY was benign, discussed with patient we do not need to do a repeat biopsy. 1 year thyroid ultrasound recommended and I recommended and we can take a look at the images when available. -check tfts. She says she has not had this tested. She does not have mychart. Patient to (more content not included)... [facility] Evaluation note Note Date & Type Note Facility documented in this encounter [facility] Summary Purpose Family History No Family History Records FoundNo Family History Records FoundNo Family History Records FoundNo Family History Records FoundNo Family History Records FoundNo Family History Records Found Advance Directives No Advanced Directives Records FoundNo Advanced Directives Records FoundNo Advanced Directives Records FoundNo Advanced Directives Records FoundNo Advanced Directives Records FoundNo Advanced Directives Records Found Additional Source Comments INFORMATION SOURCE (unrecogn ized section and content) DATE CREATED AUTHOR AUTHOR'S ORGANIZ ATION 03/15/2018 [facility] [place] DATE CREATED AUTHOR AUTHOR'S ORGANIZ ATION 09/24/2021 [facility] DATE CREATED AUTHOR AUTHOR'S ORGANIZ ATION 04/10/2022 [facility] DATE CREATED AUTHOR AUTHOR'S ORGANIZ ATION 04/10/2022 [facility] DATE CREATED AUTHOR AUTHOR'S ORGANIZ ATION 04/13/2022 [facility] Source Comments (unrecognize d section and content) In the event this informatio n is protected by the Federal Confidentiality of Alcohol and Drug Abuse Patient Records regulations: The Federal rules restrict any use of the information to criminally investigate or prosecute any alcohol or drug abuse patient.[facility] the event this information is protected by the Federal Confidentiality of Alcohol and Drug Abuse Patient Records regulations: The Federal rules restrict any use of the information to criminally investigate or prosecute any alcohol or drug abuse patient.[facility] the event this information is protected by the Federal Confidentiality of Alcohol and Drug Abuse Patient Records regulations: The Federal rules restrict any use of the information to criminally investigate or prosecute any alcohol or drug abuse patient.[facility] the event this information is protected by the Federal Confidentiality of Alcohol and Drug Abuse Patient Records regulations: The Federal rules restrict any use of the information to criminally investigate or prosecute any alcohol or drug abuse patient.[facility] the event this information is protected by the Federal Confidentiality of Alcohol and Drug Abuse Patient Records regulations: The Federal rules restrict any use of the information to criminally investigate or prosecute any alcohol or drug abuse patient.[facility] the event this information is protected by the Federal Confidentiality of Alcohol and Drug Abuse Patient Records regulations: The Federal rules restrict any use of the information to criminally investigate or prosecute any alcohol or drug abuse patient.[facility] Care Teams (unrecognized sec tion and content) Associate Professor Of Counseling Relationship Specialty Start Date End Date Yovanny Wong MD [address] [place] [address] PCP - General Family Practice 5/23/22 oYvanny Wong MD Family Practice 02/09/22 Associate Professor Of Counseling Relationship Specialty Start Date End Date Yovanny Wong MD [address] [place] [place] [address] PCP - General Family Practice 02/09/22 Yovanny Wong MD Family Practice 02/09/22 Associate Professor Of Counseling Relationship Specialty Start Date End Date Yovanny Wong MD [address] [facility] [place] [address] PCP - General Family Practice 02/09/22 Yovanny Wong MD Family Practice 02/09/22 Associate Professor Of Counseling Relationship Specialty Start Date End Date Yovanny Wong MD [address] [place] [address] PCP - General Family Medicine 02/09/22 Yovanny Wong MD [address] [place] [address] Family Medicine 02/09/22 Associate Professor Of Counseling Relationship Specialty Start Date End Date Yovanny Wong MD [address] [facility] [place] [address] PCP - General Family Medicine 02/09/22 Yovanny Wong MD [address] [place] [place] [address] Family Medicine 02/09/22 Reason for Visit (unrecogniz ed section and content) Reason Comments Acute Visit sollen lymph nodes / sore jaw Reason Onset Date Comments Refill Request 10/05/2022 FOR RECORDS PERTAINING TO PATIENTS WHO ARE OR HAVE BEEN ENROLLED IN A CHEMICAL DEPENDENCY/SUBSTANCEABUSE PROGRAM, SOME INFORMATION MAY BE OMITTED. This clinical summary was aggregated from multiple sources. Caution should be exercised in using it in the provision of clinical care. This summary normalizes information from multiple sources, and as a consequence, information in this document may materially change the coding, format and clinical context of patient data. In addition, data may be omitted in some cases. CLINICAL DECISIONS SHOULD BE BASED ON THE PRIMARY CLINICAL RECORDS. [facility]. provides no warranty or guarantee of the accuracy or completeness of information in this document.
--- NOTE | 2023-09-26 10:26 | RAD_ITS ---
HISTORY: Injury/Pain. TECHNIQUE: XR Tibia/Fibula 2 Views. COMPARISON: None. FINDINGS: BONES : No acute fracture identified. No abnormal periprosthetic lucency. JOINTS: No dislocation. Left knee arthroplasty in place. SOFT TISSUES: Mild anterior soft tissue swelling. RAD/Tibia & Fibula 2 Views IMPRESSION: No acute fracture or dislocation identified in the left leg. Electronically Signed: Ada Grossman MD at 10:50 EST ,
== END 2023-09-26 11:11 | disposition home or self-care (01) ==
PROVIDERS: Emergency Provider Emergency Medicine; PCP Internal Medicine; Visit Provider Emergency Medicine
DX: S80.12XA Contusion of left lower leg, initial encounter (principal); Z79.01 Long term (current) use of anticoagulants; Z96.652 Presence of left artificial knee joint; J45.909 Unspecified asthma, uncomplicated; I10 Essential (primary) hypertension; E78.5 Hyperlipidemia, unspecified; Z79.899 Other long term (current) drug therapy; E66.9 Obesity, unspecified; W01.0XXA Fall on same level from slipping, tripping and stumbling without subsequent striking against object, initial encounter
CPT/HCPCS: 73590; 99282

== ENCOUNTER → 2024-05-24 | Outpatient (CLI) | payer MEDICARE, OTHER, SELFPAY ==
--- NOTE | 2024-05-24 10:48 | BD_ITS ---
STUDY: DUAL ENERGY X-RAY ABSORPTIOMETRY / DXA REASON FOR EXAM: Female, 74 years old. Osteoporosis screening TECHNIQUE: Bone Mineral Density (BMD) measurements of lumbar spine and left hip were obtained. COMPARISON: None. FINDINGS: Lumbar Spine (L1-L4): g/cm2 (0.958) / T-score (-0.9) / Z-score (1.4) Findings are suggestive of normal bone density with a low fracture risk. Left Femur Total: g/cm2 (1.033) / T-score (0.7) / Z-score (2.4) Left Femoral Neck: g/cm2 (0.790) / T-score (-0.5) / Z-score (1.4) BD/Dexa Bone Density Study IMPRESSION: The patient is considered normal as outlined below according to World Rich Organization (WHO) criteria with a low fracture risk. Reference Information: The T-score is the number of standard deviations above or below the standard which is normal for young adults at their peak bone mineral density. The World Health Organization (WHO) interprets the T-scores as follows: Above -1 Normal bone density Between -1 and -2.5 Osteopenia Equal to / or below -2.5 Osteoporosis As a practical clinical guideline, osteopenia may be graded as follows: Mild -1 through -1.5 Moderate -1.6 through -2.0 Severe -2.1 through -2.4 The Z-score is the number of standard deviations above or below age-matched controls. A Z-score of less than -1.5 would be considered abnormal. References: 1. NIH Osteoporosis and Related Bone Diseases www osteo.org 2. International Society for Clinical Densitometry www iscd.org 3. National Osteoporosis Foundation www nof.org Electronically Signed: Randy Galindo MD at 13:24 EDT ,
== END | disposition home or self-care (01) ==
LOC: OPBD 10:45
PROVIDERS: PCP Internal Medicine; Referring Provider Nurse Practitioner; Visit Provider Nurse Practitioner
DX: Z78.0 Asymptomatic menopausal state (principal)
CPT/HCPCS: 77080

== ENCOUNTER → 2024-07-14 | Outpatient (CLI) | payer MEDICARE, OTHER, SELFPAY ==
[2024-07-14 12:28] LABS: Absolute Lymphocyte Count 1.93 X10^3/uL (0.83-4.51); Basophil# 0.06 X10^3/uL; Basophil% 0.8 % (0-1); Eosinophil# 0.07 X10^3/uL; Eosinophils% 0.9 % (0-5); Hematocrit 36.7 % (37-47); Hemoglobin 12.2 g/dL (12.0-15.0); Lymphocyte # 1.93 X10^3/ul (0.83-4.51); Lymphocyte % 25.2 % (19-41); Mean Corp Hgb Conc 33.2 g/dL (32-36); Mean Corpuscular Hgb 29.8 pg (27.0-32.0); Mean Corpuscular Volume 89.7 fL (81-99); Mean Platelet Vol. 10.2 fl (6.2-12.0); Monocyte# 0.57 X10^3/uL; Monocyte% 7.4 % (0-10); NRBC Flagged by Analyzer 0 % (0-5); Neutrophil # 5.01 X10^3/uL (2.7-7.7); Neutrophil % 65.4 % (47-70); Platelet Count 292 K/mm3 (150-450); RBC Distribution Width SD 39.1 fl (35.1-43.9); Red Blood Count 4.09 M/mm3 (4.2-5.4); White Blood Count 7.7 K/mm3 (4.4-11.0)
[2024-07-14 13:22] LABS: ALB/GLOB Ratio 1.2 RATIO (0.9-2.4); AST(SGOT) 17 U/L (15-37); Alanine Aminotransfer ALT/SGPT 21 U/L (13-56); Albumin, Serum 3.7 g/dL (3.2-5.0); Alkaline Phosphatase 121 U/L (45-117); Anion Gap 6 (5-15); BUN 19 mg/dL (7-18); BUN/Creat Ratio 20.1 RATIO (10-20); Calcium,Total 9.1 mg/dL (8.5-10.1); Chloride 109 mmol/L (98-107); Cholesterol 109 mg/dL (200); Creatinine, Serum 0.95 mg/dL (0.55-1.02); EST Glomerular Filtration Rate 62 mL/min (>60); Est Glom Filt Rate - Afr Amer 74 mL/min (>60); Globulin 3.2 g/dL (2.2-4.2); Glucose 90 mg/dL (74-106); High Density Lipoprotein 42 mg/dL; Potassium 3.8 mmol/L (3.5-5.1); Protein, Total 6.9 g/dL (6.4-8.2); Sodium Level 143 mmol/L (136-145); Triglycerides 86 mg/dL; Very Low Density Lipoprotein 17 mg/dL (5-40)
== END | disposition home or self-care (01) ==
LOC: MTLAB 09:51
PROVIDERS: PCP Internal Medicine; Referring Provider Nurse Practitioner; Visit Provider Nurse Practitioner
DX: E78.5 Hyperlipidemia, unspecified (principal); I10 Essential (primary) hypertension
CPT/HCPCS: 36415; 80053; 80061; 85025

== ENCOUNTER → 2024-09-06 | Outpatient (CLI) | payer MEDICARE, OTHER, SELFPAY ==
--- NOTE | 2024-09-06 12:55 | NEURO ---
NCS and/or EMG Patient Report Ordering Doctor: Amy Saleh DATE OF SERVICE: 09/06/24 Roselyn presents electrodiagnostic testing of the lower limbs. She reports numbness and tingling in the feet, primarily when standing for long period of time. Right peroneal motor nerve demonstrates normal distal latency, amplitude and conduction velocity. Normal tibial motor response bilaterally. Left peroneal motor nerve measured at the tibialis anterior shows normal distal latency, amplitude and conduction velocity. Sensory responses are within normal limits. Borderline prolonged H?reflex bilaterally. Prolonged left peroneal F?wave. Needle EMG testing was performed in the lower limbs. All muscles tested showed no evidence of denervation with normal motor unit action potentials. Electrodiagnostic impression: This is a normal electrodiagnostic study of the lower limbs. There is no electrodiagnostic evidence for peripheral polyneuropathy or lumbosacral radiculopathy. Multi Select Codes Neurology Neurology Interp Codes: 52077-07 Musc test done w/n test comp (interp) (2) and 05855-15 Nrv cndj test 11-12 studies (interp)
== END | disposition home or self-care (01) ==
LOC: PSN 08:18
PROVIDERS: PCP Internal Medicine; Referring Provider Internal Medicine; Visit Provider Internal Medicine
DX: R20.2 Paresthesia of skin (principal); R20.0 Anesthesia of skin
CPT/HCPCS: 95886; 95912

== ENCOUNTER → 2024-10-02 | Outpatient (CLI) | payer MEDICARE, OTHER, SELFPAY ==
--- NOTE | 2024-10-02 09:30 | RAD_ITS ---
STUDY: X-RAY - LUMBAR SPINE REASON FOR EXAM: Female, 74 years old. LUMBAR PAIN TECHNIQUE: 5 view(s) of the lumbar spine were obtained. COMPARISON: None FINDINGS: Normal lumbar lordosis. Mild dextroscoliosis is present. Fracture or compression deformity or aggressive abnormality is seen. Asymmetric mild disc space narrowing and endplate spurring is present throughout the lumbar spine. The soft tissue structures are unremarkable. RAD/L/S Spine Min 4 Views IMPRESSION: Degenerative changes of the spine, as detailed above. Electronically Signed: Deepak Pruitt MD at 11:04 EST ,
== END | disposition home or self-care (01) ==
LOC: MTRAD 09:26
PROVIDERS: PCP Internal Medicine; Referring Provider Anesthesiology Pain Medicine; Visit Provider Anesthesiology Pain Medicine
DX: M48.07 Spinal stenosis, lumbosacral region (principal)

== ENCOUNTER → 2024-12-06 | Outpatient (CLI) | payer MEDICARE, OTHER, SELFPAY ==
--- NOTE | 2024-12-06 07:24 | MRI_ITS ---
PROCEDURE: SPINE LUMBAR (ROUTINE) 12/06/2024 REASON FOR EXAM: WEDGE COMPRESSION FRACTURE-LUMBAR Back pain. Bilateral leg numbness. History of meningitis 1995. TECHNIQUE: Noncontrast lumbar spine MRI. COMPARISON: None. FINDINGS: Vertebrae: Lumbar vertebral body heights are preserved. Bone marrow signal is unremarkable. Alignment: Normal. No spondylolisthesis. Conus Medullaris: Normally positioned. On sagittal images, mild degenerative disc disease is seen from L1 through L4. Mild disc space narrowing is probably present at both L2-L3 and L3-L4 levels. L1-2: Mild right posterior facet and ligamentum flavum hypertrophy is seen. A very mild disc bulge is noted. No significant spinal canal stenosis or neural foraminal narrowing is seen. L2-3: Mild posterior facet and ligamentum flavum hypertrophy is seen, [id number]. A slight disc bulge is noted. Superimposed upon this is seen in the left lateral mild disc protrusion. No significant degree of spinal canal stenosis or neural foraminal narrowing is seen. L3-4: Mild posterior facet and ligamentum flavum hypertrophy is seen. A very mild disc bulge is seen, with superimposed mild right lateral disc protrusion. No significant degree of neural foraminal narrowing is noted. A mild degree of spinal canal narrowing is present. L4-5: Mild posterior facet hypertrophy is noted. A mild disc bulge is seen. Superimposed upon this is seen mild left lateral disc protrusion. No significant degree of spinal canal stenosis or neural foraminal narrowing is noted. L5-S1: Unremarkable Sacrum: Visualized upper sacrum and SI joints are unremarkable. MRI/Spine Lumbar (Routine) IMPRESSION: Multilevel lumbar degenerative disc disease, as described. Reading Location: [id number]
== END | disposition home or self-care (01) ==
LOC: MRI 07:11
PROVIDERS: PCP Internal Medicine; Referring Provider Anesthesiology Pain Medicine; Visit Provider Anesthesiology Pain Medicine
DX: S32.000A Wedge compression fracture of unspecified lumbar vertebra, initial encounter for closed fracture (principal); X58.XXXA Exposure to other specified factors, initial encounter
CPT/HCPCS: 72148

== ENCOUNTER → 2025-05-25 | Outpatient (CLI) | payer MEDICARE, OTHER, SELFPAY ==
--- NOTE | 2025-05-25 10:00 | RAD_ITS ---
PROCEDURE: CERV SPINE 4 OR 5 VIEWS 05/25/2025 REASON FOR EXAM: OTHER CERVICAL DISC DEGENERATION, UNSPECIFIED CERV TECHNIQUE: [facility] Procedure: CERV SPINE 4 OR 5 VIEWS FINDINGS: No acute fracture. Minimal grade 1 anterolisthesis of C3 on C4 and C4 on C5 with flexion, which corrects with extension, suggesting very mild ligamentous laxity. Anterior fusion of C5 through C7, with interbody fusion is noted. The relationship of C1 on C2 appears normal. The prevertebral soft tissues appear unremarkable. RAD/Cerv Spine 4 or 5 Views IMPRESSION: As above. Reading Location: [id number]
== END | disposition home or self-care (01) ==
LOC: RAD 09:59
PROVIDERS: PCP Internal Medicine; Referring Provider Anesthesiology Pain Medicine; Visit Provider Anesthesiology Pain Medicine
DX: M50.30 Other cervical disc degeneration, unspecified cervical region (principal)
CPT/HCPCS: 72050